=== PATIENT | female | born 1955 | race Caucasian/White ===

== ENCOUNTER → 2018-12-31 15:43 | Outpatient (CLI) | payer OTHER, SELFPAY ==
--- NOTE | 2018-12-31 | DI.MG.S_ITS ---
BILATERAL DIGITAL SCREENING MAMMOGRAM 3D/2D WITH CAD: 12/31/2018 CLINICAL: Routine screening. Comparison is made to exams dated: 07/22/2016 mammogram, 07/19/2015 mammogram, and 06/03/2014 mammogram - [facility]. The tissue of both breasts is heterogeneously dense. This may lower the sensitivity of mammography. Current study was also evaluated with a Computer Aided Detection (CAD) system. No significant masses, calcifications, or other findings are seen in either breast. There has been no significant interval change. IMPRESSION: NEGATIVE There is no mammographic evidence of malignancy. A 1 year screening mammogram is recommended. This exam was interpreted at Station ID: [id number]. NOTE: For mammograms, a report in lay terms will be sent to the patient. Approximately 15% of breast malignancies will not be visualized mammographically. In the management of a palpable breast mass, a negative mammogram must not discourage biopsy of a clinically suspicious lesion. Electronically Signed By: Johnson gillis/aleah:01/04/2019 10:49:51 letter sent: Normal Exam ACR BI-RADS Category 1: Negative [id number]
== END ==
PROVIDERS: PCP Student in an Organized Health Care Education/Training Program; Visit Provider Student in an Organized Health Care Education/Training Program
DX: Z12.31 Encounter for screening mammogram for malignant neoplasm of breast (principal)
CPT/HCPCS: 77063; 77067

== ENCOUNTER 2019-05-26 08:15 | Outpatient (RCR) | payer OTHER, SELFPAY ==
--- NOTE | 2019-03-29 15:38 | PT.OIE ---
Current Diagnoses Sciatica, unspecified side (03/29/19) Past Medical History (This Medical Record has been edited. Action required.) Chicken pox (Acute) Ovarian cyst (Acute ~2001) Past Surgical History (This Medical Record has been edited. Action required.) Anesthesia (Acute) History of dilatation and curettage (Acute ~1998) Visit Care Team Role Provider Type Kobe Elliott MD Attending Provider Physician Primary Care Provider Specialty: Internal Medicine Address: [address] [place] [address], [address], [address] Email: [email or web address] Physical Therapy Initial Evaluation PT-OP-A Visit Information Start: 03/29/19 07:21 Freq: Status: Active Protocol: Document 03/29/19 08:15 MB (Rec: 03/29/19 08:55 MB [id number]) Out-Patient Physical Therapy Visit Information Visit Information Visit Type Initial Evaluation Visit Note 25 visits Visit Start Time 08:15 Visit Stop Time 08:55 Total Visit Minutes 40 Visit Number 06/12 PT-OP-B Current Condition Start: 03/29/19 07:21 Freq: Status: Active Protocol: Document 03/29/19 08:15 MB (Rec: 03/29/19 08:55 MB [id number]) Current Condition History of Current Condition Onset Date 02/17/19 History of Current Condition Pt got off plane from [place] to [place] and she had left left pain in her buttock and leg. Pt reports that getting OOB and putting left leg on the floor makes her left leg hurt the worse. Pt reports intermittent pain and has trouble rating it. Driving time in the car, too much time sitting, and not walking increase her pain. She has had low pain to a couple of 8-9/ 10 mornings. She had a 10/10 morning and thought she was going to faint 3 weeks ago. That prompted her to see Dr. Elliott. Pt reports numbness left plantar fascia near met heads. She reports she feels like she has an extra sock in the area. It is pretty constant. She is sleeping on her back with a pillow under her knees and her pain is better. She has slippers next to the bed that she puts on in the morning. She has pain on her ischial tuberosity with sitting. Her assisted her with scooting in the bed, putting his hand under her left ischial tuberosity and this increased the pain. She feels like her gait is off and she is walking slowly. PT-OP-C Subjective Start: 03/29/19 07:21 Freq: Status: Active Protocol: Document 03/29/19 08:15 MB (Rec: 03/29/19 08:55 MB [id number]) OP-PT Subjective Patient Comments Patient Comments Pt's goals for PT are to decrease pain and numbness. She would like to be able to sit down at the piano to play. Patient Questionnaires Oswestry Low Back Index Oswestry Impairment 40 to 59% Impaired (Score 40- 59) PT-OP-J Posture/Palpation/Skin Start: 03/29/19 07:21 Freq: Status: Active Protocol: Document 03/29/19 08:15 MB (Rec: 03/29/19 15:11 MB [id number]) Posture Evaluation Comments Posture Comments Standing: Dowager's hump, decreased thoracic kyphosis, increased lumbar lordosis, right handed and right shoulder lower than the left, right iliac crest mildly higher than the left PT-OP-K Range of Motion Start: 03/29/19 07:21 Freq: Status: Active Protocol: Document 03/29/19 08:15 MB (Rec: 03/29/19 15:11 MB [id number]) Hip Goniometric Range of Motion Hip ROM Limitations Comments PT attempts SLR with pt supine and pt yelps in pain. Unable to SLR left greater than 30 deg. Pt reports buttocks and hamstring discomfort, not rated. Deferred left hip and knee MMT d/t her response and fear of pain PT-OP-M Strength Start: 03/29/19 07:21 Freq: Status: Active Protocol: Document 03/29/19 08:15 MB (Rec: 03/29/19 15:11 MB [id number]) Hip Strength Hip Manual Muscle Testing Left Comments Supine deferred d/t pt's response with SLR and fear of pain Right Flexion (L2) 4 Good Abduction 3 Fair Comments Supine Knee Strength Knee Manual Muscle Testing Left Comments Deferred d/t pt's response with SLR and fear of pain Right Flexion (S2) 5 Normal Extension (L3) 5 Normal Comments Supine Ankle/Foot Strength Ankle and Foot Manual Muscle Testing Left Dorsiflexion (L4) 5 Normal Plantarflexion (S1) 5 Normal Inversion 5 Normal Eversion (S1) 5 Normal Comments Great toe 4/5 Right Dorsiflexion (L4) 5 Normal Plantarflexion (S1) 5 Normal Inversion 5 Normal Eversion (S1) 5 Normal Comments Great toe 5/5 PT-OP-Q Treatments Start: 03/29/19 07:21 Freq: Status: Active Protocol: Document 03/29/19 08:15 MB (Rec: 03/29/19 09:00 MB [id number]) Therapeutic Exercises Supine Exercises Pelvic realigment exercises Comments Pelvic realignment exercises added to HEP PT-OP-T Assessment and Plan Start: 03/29/19 07:21 Freq: Status: Active Protocol: Document 03/29/19 08:15 MB (Rec: 03/29/19 15:11 MB [id number]) Physical Therapy Assessment Rehab Potential Rehabilitation Potential Good Evaluation Complexity Number of Personal Factors/Comorbidities 0 Number of Body Systems Impaired 1-2 Impairments Impairments Balance,Functional Activities, Functional Mobility,Pain, Posture,ROM,Sensation,Soft Tissue Mobility,Strength Goals 5 Group Home Goal (LTG) Pt will perform progressive HEP including postural, pelvic alignment, flexibility, strengthening and balance exercises with I by 05/31/19. LTG Duration 8 weeks 4 Impairment Weakness Group Home Goal (LTG) Pt will present with B hip flexion and abduction, knee flexion and extension to at least 5/5 with MMT by 05/31/19. LTG Duration 8 weeks 3 Impairment Decreased ROM Materials Branch Chief Goal (LTG) Pt will present with B SLR to at least 80 deg without LB or leg pain by 05/31/19. LTG Duration 8 weeks 2 Impairment Pain Group Home Goal (LTG) Pt will report an overall 75% improvement in pain by 05/31/19 . LTG Duration 8 weeks 1 Impairment Oswestry reflects 52% impairment Group Home Goal (LTG) Pt will present with an improved Oswestry LBP scale score to reflect no more than 30% impairment by 05/31/19. LTG Duration 8 weeks Assessment Summary Assessment Pt is a 63 y/o female presenting with left buttock and LE pain and paresthesias [place]. She reports pain at her left ischial tuberosity specifically and pain that occ travels down her left leg with the feeling of extra sock material at the met heads under her left foot. Sitting is troublesome and she would like to get back to playing the piano. Pt presents with decreased PROM left LE, decreased strength and postural changes including pelvic obliquities. Repeated standing flexion and extension , Slump Test and left hip and knee MMT deferred d/t pt with increased pain and fear with minimal SLR LLE to 30 deg. Her symptoms are radicular in nature. She will benefit from PT for pelvic alignment, flexibility, core and LE strengthening and manual PT. Physical Therapy Plan Frequency and Duration Frequency of Treatment 2x/Week Duration of Treatment 8 weeks Plan of Care Start Date 03/29/19 Plan of Care End Date 05/31/19 Therapeutic Interventions Therapeutic Interventions Balance Training,Home Exercise Program,Joint Mobilizations, Manual Therapy,Neuromuscular Re-education,Orthotic/ Prosthetic Management,Patient/ Caregiver Education,Self-Care/ Home Management,Soft Tissue Mobilization,Taping, Therapeutic Exercises Modalities Cold Pack/Ice Massage,Electric Stimulation,Hot Packs, Ultrasound Next Visit Focus/Plan Next Note Type Treatment Note Next Visit Plan Review pelvic realigment exercises and initiate further progressive exercises and Counterstrain
--- NOTE | 2019-03-31 13:45 | PT.OTN ---
Current Diagnoses Sciatica, unspecified side (03/31/19) Physical Therapy Treatment Note PT-OP-A Visit Information Start: 03/29/19 07:21 Freq: Status: Active Protocol: Document 03/31/19 13:05 MB (Rec: 03/31/19 13:45 MB [id number]) Out-Patient Physical Therapy Visit Information Visit Information Visit Type Treatment Note Visit Note 25 visits Visit Start Time 13:05 Visit Stop Time 13:45 Total Visit Minutes 40 Visit Number 07/13 PT-OP-B Current Condition Start: 03/29/19 07:21 Freq: Status: Active Protocol: Document 03/29/19 08:15 MB (Rec: 03/29/19 08:55 MB [id number]) Current Condition History of Current Condition Onset Date 02/17/19 History of Current Condition Pt got off plane from [place] to [place] and she had left left pain in her buttock and leg. Pt reports that getting OOB and putting left leg on the floor makes her left leg hurt the worse. Pt reports intermittent pain and has trouble rating it. Driving time in the car, too much time sitting, and not walking increase her pain. She has had low pain to a couple of 8-9/ 10 mornings. She had a 10/10 morning and thought she was going to faint 3 weeks ago. That prompted her to see Dr. Elliott. Pt reports numbness left plantar fascia near met heads. She reports she feels like she has an extra sock in the area. It is pretty constant. She is sleeping on her back with a pillow under her knees and her pain is better. She has slippers next to the bed that she puts on in the morning. She has pain on her ischial tuberosity with sitting. Her assisted her with scooting in the bed, putting his hand under her left ischial tuberosity and this increased the pain. She feels like her gait is off and she is walking slowly. PT-OP-C Subjective Start: 03/29/19 07:21 Freq: Status: Active Protocol: Document 03/31/19 13:05 MB (Rec: 03/31/19 13:45 MB [id number]) OP-PT Subjective Patient Comments Patient Comments Pt states that she had the worse morning that she has had . She did a lot of walking on Friday and then sat at her friend's house for dinner for a long time. She then drove to [facility] yesterday and had dinner and sat for [address] back and felt worse. She felt bad lying on her right side with pillow support between her knees. PT-OP-J Posture/Palpation/Skin Start: 03/29/19 07:21 Freq: Status: Active Protocol: Document 03/29/19 08:15 MB (Rec: 03/29/19 15:11 MB [id number]) Posture Evaluation Comments Posture Comments Standing: Dowager's hump, decreased thoracic kyphosis, increased lumbar lordosis, right handed and right shoulder lower than the left, right iliac crest mildly higher than the left PT-OP-K Range of Motion Start: 03/29/19 07:21 Freq: Status: Active Protocol: Document 03/29/19 08:15 MB (Rec: 03/29/19 15:11 MB [id number]) Hip Goniometric Range of Motion Hip ROM Limitations Comments PT attempts SLR with pt supine and pt yelps in pain. Unable to SLR left greater than 30 deg. Pt reports buttocks and hamstring discomfort, not rated. Deferred left hip and knee MMT d/t her response and fear of pain PT-OP-M Strength Start: 03/29/19 07:21 Freq: Status: Active Protocol: Document 03/29/19 08:15 MB (Rec: 03/29/19 15:11 MB [id number]) Hip Strength Hip Manual Muscle Testing Left Comments Supine deferred d/t pt's response with SLR and fear of pain Right Flexion (L2) 4 Good Abduction 3 Fair Comments Supine Knee Strength Knee Manual Muscle Testing Left Comments Deferred d/t pt's response with SLR and fear of pain Right Flexion (S2) 5 Normal Extension (L3) 5 Normal Comments Supine Ankle/Foot Strength Ankle and Foot Manual Muscle Testing Left Dorsiflexion (L4) 5 Normal Plantarflexion (S1) 5 Normal Inversion 5 Normal Eversion (S1) 5 Normal Comments Great toe 4/5 Right Dorsiflexion (L4) 5 Normal Plantarflexion (S1) 5 Normal Inversion 5 Normal Eversion (S1) 5 Normal Comments Great toe 5/5 PT-OP-Q Treatments Start: 03/29/19 07:21 Freq: Status: Active Protocol: Document 03/31/19 13:05 MB (Rec: 03/31/19 13:45 MB [id number]) Therapeutic Exercises Supine Exercises Diaphragmatic breathing Reps/Minutes Pt has difficulty with this Pelvic realigment exercises Comments Performed today Self-Care/Home Management Treatment Education Other Education Benefits of sitting with hips higher than knees, getting up every 20 minutes when sitting, benefits of 55 cm therapy ball, Counterstrain handout and ed, glute sets when sitting PT-OP-T Assessment and Plan Start: 03/29/19 07:21 Freq: Status: Active Protocol: Document 03/31/19 13:05 MB (Rec: 03/31/19 13:45 MB [id number]) Physical Therapy Assessment Rehab Potential Rehabilitation Potential Good Evaluation Complexity Number of Personal Factors/Comorbidities 0 Number of Body Systems Impaired 1-2 Impairments Impairments Balance,Functional Activities, Functional Mobility,Pain, Posture,ROM,Sensation,Soft Tissue Mobility,Strength Goals 5 Intermediate Goal (LTG) Pt will perform progressive HEP including postural, pelvic alignment, flexibility, strengthening and balance exercises with I by 05/31/19. LTG Duration 8 weeks 4 Impairment Weakness Layout Worker Goal (LTG) Pt will present with B hip flexion and abduction, knee flexion and extension to at least 5/5 with MMT by 05/31/19. LTG Duration 8 weeks 3 Impairment Decreased ROM Intermediate Goal (LTG) Pt will present with B SLR to at least 80 deg without LB or leg pain by 05/31/19. LTG Duration 8 weeks 2 Impairment Pain Layout Worker Goal (LTG) Pt will report an overall 75% improvement in pain by 05/31/19 . LTG Duration 8 weeks 1 Impairment Oswestry reflects 52% impairment Layout Worker Goal (LTG) Pt will present with an improved Oswestry LBP scale score to reflect no more than 30% impairment by 05/31/19. LTG Duration 8 weeks Assessment Summary Assessment Pt con't with left sciatic- type pain and ischial pain. Reviewed pelvic realignment exercises, proper sitting position. Plan to initiate Counterstrain soon. Physical Therapy Plan Frequency and Duration Frequency of Treatment 2x/Week Duration of Treatment 8 weeks Plan of Care Start Date 03/29/19 Plan of Care End Date 05/31/19 Therapeutic Interventions Therapeutic Interventions Balance Training,Home Exercise Program,Joint Mobilizations, Manual Therapy,Neuromuscular Re-education,Orthotic/ Prosthetic Management,Patient/ Caregiver Education,Self-Care/ Home Management,Soft Tissue Mobilization,Taping, Therapeutic Exercises Modalities Cold Pack/Ice Massage,Electric Stimulation,Hot Packs, Ultrasound Next Visit Focus/Plan Next Note Type Treatment Note Next Visit Plan Review pelvic realigment exercises and initiate further progressive exercises and Counterstrain
--- NOTE | 2019-04-05 09:01 | PT.OTN ---
Current Diagnoses Sciatica, unspecified side (04/05/19) Physical Therapy Treatment Note PT-OP-A Visit Information Start: 03/29/19 07:21 Freq: Status: Active Protocol: Document 04/05/19 08:20 MB (Rec: 04/05/19 09:00 MB [id number]) Out-Patient Physical Therapy Visit Information Visit Information Visit Type Treatment Note Visit Note 25 visits Visit Start Time 08:20 Visit Stop Time 09:00 Total Visit Minutes 40 Visit Number 08/10 PT-OP-B Current Condition Start: 03/29/19 07:21 Freq: Status: Active Protocol: Document 03/29/19 08:15 MB (Rec: 03/29/19 08:55 MB [id number]) Current Condition History of Current Condition Onset Date 02/17/19 History of Current Condition Pt got off plane from [place] to [place] and she had left left pain in her buttock and leg. Pt reports that getting OOB and putting left leg on the floor makes her left leg hurt the worse. Pt reports intermittent pain and has trouble rating it. Driving time in the car, too much time sitting, and not walking increase her pain. She has had low pain to a couple of 8-9/ 10 mornings. She had a 10/10 morning and thought she was going to faint 3 weeks ago. That prompted her to see Dr. Elliott. Pt reports numbness left plantar fascia near met heads. She reports she feels like she has an extra sock in the area. It is pretty constant. She is sleeping on her back with a pillow under her knees and her pain is better. She has slippers next to the bed that she puts on in the morning. She has pain on her ischial tuberosity with sitting. Her assisted her with scooting in the bed, putting his hand under her left ischial tuberosity and this increased the pain. She feels like her gait is off and she is walking slowly. PT-OP-C Subjective Start: 03/29/19 07:21 Freq: Status: Active Protocol: Document 04/05/19 08:20 MB (Rec: 04/05/19 09:00 MB [id number]) OP-PT Subjective Patient Comments Patient Comments Pt states that yesterday, she had a pretty good day. She did the ellipital for 1 hour for two days. She was feeling better and then tried to lead ascending steps with left foot and that started an episode. It lasted 20 minutes. She did not have to spend time sitting anywhere. She has not been sitting to eat. She has been forgetting to squeeze her glutes when sitting. She was able to sit for 15 minutes at a time to watch TV and she was okay. She could carry laundry down the steps. PT-OP-J Posture/Palpation/Skin Start: 03/29/19 07:21 Freq: Status: Active Protocol: Document 03/29/19 08:15 MB (Rec: 03/29/19 15:11 MB [id number]) Posture Evaluation Comments Posture Comments Standing: Dowager's hump, decreased thoracic kyphosis, increased lumbar lordosis, right handed and right shoulder lower than the left, right iliac crest mildly higher than the left PT-OP-K Range of Motion Start: 03/29/19 07:21 Freq: Status: Active Protocol: Document 03/29/19 08:15 MB (Rec: 03/29/19 15:11 MB [id number]) Hip Goniometric Range of Motion Hip ROM Limitations Comments PT attempts SLR with pt supine and pt yelps in pain. Unable to SLR left greater than 30 deg. Pt reports buttocks and hamstring discomfort, not rated. Deferred left hip and knee MMT d/t her response and fear of pain PT-OP-M Strength Start: 03/29/19 07:21 Freq: Status: Active Protocol: Document 03/29/19 08:15 MB (Rec: 03/29/19 15:11 MB [id number]) Hip Strength Hip Manual Muscle Testing Left Comments Supine deferred d/t pt's response with SLR and fear of pain Right Flexion (L2) 4 Good Abduction 3 Fair Comments Supine Knee Strength Knee Manual Muscle Testing Left Comments Deferred d/t pt's response with SLR and fear of pain Right Flexion (S2) 5 Normal Extension (L3) 5 Normal Comments Supine Ankle/Foot Strength Ankle and Foot Manual Muscle Testing Left Dorsiflexion (L4) 5 Normal Plantarflexion (S1) 5 Normal Inversion 5 Normal Eversion (S1) 5 Normal Comments Great toe 4/5 Right Dorsiflexion (L4) 5 Normal Plantarflexion (S1) 5 Normal Inversion 5 Normal Eversion (S1) 5 Normal Comments Great toe 5/5 PT-OP-Q Treatments Start: 03/29/19 07:21 Freq: Status: Active Protocol: Document 04/05/19 08:20 MB (Rec: 04/05/19 09:00 MB [id number]) Therapeutic Exercises Supine Exercises Daniel stretch Comments Performed this date and not yet added to HEP Diaphragmatic breathing Comments Performed again this date in hook lying, pt has difficulty Pelvic realigment exercises Comments Reviewed again this date Prone Exercises Prone lying Comments Pt wishes to get out of position, buttock pain Manual Therapy Treatment Other Other Manual Treatments Positional release left hip rotators and hip flexor PT-OP-T Assessment and Plan Start: 03/29/19 07:21 Freq: Status: Active Protocol: Document 04/05/19 08:20 MB (Rec: 04/05/19 09:00 MB [id number]) Physical Therapy Assessment Rehab Potential Rehabilitation Potential Good Evaluation Complexity Number of Personal Factors/Comorbidities 0 Number of Body Systems Impaired 1-2 Impairments Impairments Balance,Functional Activities, Functional Mobility,Pain, Posture,ROM,Sensation,Soft Tissue Mobility,Strength Goals 5 Correction Goal (LTG) Pt will perform progressive HEP including postural, pelvic alignment, flexibility, strengthening and balance exercises with I by 05/31/19. LTG Duration 8 weeks 4 Impairment Weakness Correction Goal (LTG) Pt will present with B hip flexion and abduction, knee flexion and extension to at least 5/5 with MMT by 05/31/19. LTG Duration 8 weeks 3 Impairment Decreased ROM Security Dispatcher Goal (LTG) Pt will present with B SLR to at least 80 deg without LB or leg pain by 05/31/19. LTG Duration 8 weeks 2 Impairment Pain Security Dispatcher Goal (LTG) Pt will report an overall 75% improvement in pain by 05/31/19 . LTG Duration 8 weeks 1 Impairment Oswestry reflects 52% impairment Correction Goal (LTG) Pt will present with an improved Oswestry LBP scale score to reflect no more than 30% impairment by 05/31/19. LTG Duration 8 weeks Assessment Summary Assessment Pt could not tolerate prone lying this date. Con't to try and also initiate Counterstrain soon. Palpation assessment today: pt presents with increased tension left sacrotuberous ligament area, left hip rotators, hip flexor Physical Therapy Plan Frequency and Duration Frequency of Treatment 2x/Week Duration of Treatment 8 weeks Plan of Care Start Date 03/29/19 Plan of Care End Date 05/31/19 Therapeutic Interventions Therapeutic Interventions Balance Training,Home Exercise Program,Joint Mobilizations, Manual Therapy,Neuromuscular Re-education,Orthotic/ Prosthetic Management,Patient/ Caregiver Education,Self-Care/ Home Management,Soft Tissue Mobilization,Taping, Therapeutic Exercises Modalities Cold Pack/Ice Massage,Electric Stimulation,Hot Packs, Ultrasound Next Visit Focus/Plan Next Note Type Treatment Note Next Visit Plan Initiate Counterstrain soon
--- NOTE | 2019-04-09 09:48 | PT.OTN ---
Current Diagnoses Sciatica, unspecified side (04/09/19) Physical Therapy Treatment Note PT-OP-A Visit Information Start: 03/29/19 07:21 Freq: Status: Active Protocol: Document 04/09/19 09:03 MB (Rec: 04/09/19 09:48 MB [id number]) Out-Patient Physical Therapy Visit Information Visit Information Visit Type Treatment Note Visit Note 25 visits Visit Start Time 09:03 Visit Stop Time 09:43 Total Visit Minutes 40 Visit Number 09/10 PT-OP-B Current Condition Start: 03/29/19 07:21 Freq: Status: Active Protocol: Document 03/29/19 08:15 MB (Rec: 03/29/19 08:55 MB [id number]) Current Condition History of Current Condition Onset Date 02/17/19 History of Current Condition Pt got off plane from [place] to [place] and she had left left pain in her buttock and leg. Pt reports that getting OOB and putting left leg on the floor makes her left leg hurt the worse. Pt reports intermittent pain and has trouble rating it. Driving time in the car, too much time sitting, and not walking increase her pain. She has had low pain to a couple of 8-9/ 10 mornings. She had a 10/10 morning and thought she was going to faint 3 weeks ago. That prompted her to see Dr. Elliott. Pt reports numbness left plantar fascia near met heads. She reports she feels like she has an extra sock in the area. It is pretty constant. She is sleeping on her back with a pillow under her knees and her pain is better. She has slippers next to the bed that she puts on in the morning. She has pain on her ischial tuberosity with sitting. Her assisted her with scooting in the bed, putting his hand under her left ischial tuberosity and this increased the pain. She feels like her gait is off and she is walking slowly. PT-OP-C Subjective Start: 03/29/19 07:21 Freq: Status: Active Protocol: Document 04/09/19 09:03 MB (Rec: 04/09/19 09:48 MB [id number]) OP-PT Subjective Patient Comments Patient Comments Pt states that she went to reach for a cereal box way overhead with her right hand and felt the pain go down to her left buttock and leg. It triggered and episode. PT-OP-J Posture/Palpation/Skin Start: 03/29/19 07:21 Freq: Status: Active Protocol: Document 03/29/19 08:15 MB (Rec: 03/29/19 15:11 MB [id number]) Posture Evaluation Comments Posture Comments Standing: Dowager's hump, decreased thoracic kyphosis, increased lumbar lordosis, right handed and right shoulder lower than the left, right iliac crest mildly higher than the left PT-OP-K Range of Motion Start: 03/29/19 07:21 Freq: Status: Active Protocol: Document 03/29/19 08:15 MB (Rec: 03/29/19 15:11 MB [id number]) Hip Goniometric Range of Motion Hip ROM Limitations Comments PT attempts SLR with pt supine and pt yelps in pain. Unable to SLR left greater than 30 deg. Pt reports buttocks and hamstring discomfort, not rated. Deferred left hip and knee MMT d/t her response and fear of pain PT-OP-M Strength Start: 03/29/19 07:21 Freq: Status: Active Protocol: Document 03/29/19 08:15 MB (Rec: 03/29/19 15:11 MB [id number]) Hip Strength Hip Manual Muscle Testing Left Comments Supine deferred d/t pt's response with SLR and fear of pain Right Flexion (L2) 4 Good Abduction 3 Fair Comments Supine Knee Strength Knee Manual Muscle Testing Left Comments Deferred d/t pt's response with SLR and fear of pain Right Flexion (S2) 5 Normal Extension (L3) 5 Normal Comments Supine Ankle/Foot Strength Ankle and Foot Manual Muscle Testing Left Dorsiflexion (L4) 5 Normal Plantarflexion (S1) 5 Normal Inversion 5 Normal Eversion (S1) 5 Normal Comments Great toe 4/5 Right Dorsiflexion (L4) 5 Normal Plantarflexion (S1) 5 Normal Inversion 5 Normal Eversion (S1) 5 Normal Comments Great toe 5/5 PT-OP-Q Treatments Start: 03/29/19 07:21 Freq: Status: Active Protocol: Document 04/09/19 09:03 MB (Rec: 04/09/19 09:48 MB [id number]) Manual Therapy Treatment Other Other Manual Treatments Pt agrees to Counterstrain to assess and treat fascial tension of the following systems: left somatic, right cranial nerve, left sinuvertebal, right post- ganglionics UE, right thoracic visceral, right ALL, right spinal veins extended. Treated stacks: right spinal veins extended, right pleural viscera, LLE somatics anterior and stacks with the right. PT-OP-T Assessment and Plan Start: 03/29/19 07:21 Freq: Status: Active Protocol: Document 04/09/19 09:03 MB (Rec: 04/09/19 09:48 MB [id number]) Physical Therapy Assessment Rehab Potential Rehabilitation Potential Good Evaluation Complexity Number of Personal Factors/Comorbidities 0 Number of Body Systems Impaired 1-2 Impairments Impairments Balance,Functional Activities, Functional Mobility,Pain, Posture,ROM,Sensation,Soft Tissue Mobility,Strength Goals 5 Retirement Goal (LTG) Pt will perform progressive HEP including postural, pelvic alignment, flexibility, strengthening and balance exercises with I by 05/31/19. LTG Duration 8 weeks 4 Impairment Weakness Pattern Fitter Goal (LTG) Pt will present with B hip flexion and abduction, knee flexion and extension to at least 5/5 with MMT by 05/31/19. LTG Duration 8 weeks 3 Impairment Decreased ROM Retirement Goal (LTG) Pt will present with B SLR to at least 80 deg without LB or leg pain by 05/31/19. LTG Duration 8 weeks 2 Impairment Pain Retirement Goal (LTG) Pt will report an overall 75% improvement in pain by 05/31/19 . LTG Duration 8 weeks 1 Impairment Oswestry reflects 52% impairment Pattern Fitter Goal (LTG) Pt will present with an improved Oswestry LBP scale score to reflect no more than 30% impairment by 05/31/19. LTG Duration 8 weeks Assessment Summary Assessment Con't Counterstrain and progress flexibility adn core and LE strengthening. Physical Therapy Plan Frequency and Duration Frequency of Treatment 2x/Week Duration of Treatment 8 weeks Plan of Care Start Date 03/29/19 Plan of Care End Date 05/31/19 Therapeutic Interventions Therapeutic Interventions Balance Training,Home Exercise Program,Joint Mobilizations, Manual Therapy,Neuromuscular Re-education,Orthotic/ Prosthetic Management,Patient/ Caregiver Education,Self-Care/ Home Management,Soft Tissue Mobilization,Taping, Therapeutic Exercises Modalities Cold Pack/Ice Massage,Electric Stimulation,Hot Packs, Ultrasound Next Visit Focus/Plan Next Note Type Treatment Note Next Visit Plan Initiate Counterstrain soon
--- NOTE | 2019-04-12 08:59 | PT.OTN ---
Current Diagnoses Sciatica, unspecified side (04/12/19) Physical Therapy Treatment Note PT-OP-A Visit Information Start: 03/29/19 07:21 Freq: Status: Active Protocol: Document 04/12/19 08:15 MB (Rec: 04/12/19 08:59 MB [id number]) Out-Patient Physical Therapy Visit Information Visit Information Visit Type Treatment Note Visit Note 25 visits Visit Start Time 08:15 Visit Stop Time 08:55 Total Visit Minutes 40 Visit Number 10/10 PT-OP-B Current Condition Start: 03/29/19 07:21 Freq: Status: Active Protocol: Document 03/29/19 08:15 MB (Rec: 03/29/19 08:55 MB [id number]) Current Condition History of Current Condition Onset Date 02/17/19 History of Current Condition Pt got off plane from [place] to [place] and she had left left pain in her buttock and leg. Pt reports that getting OOB and putting left leg on the floor makes her left leg hurt the worse. Pt reports intermittent pain and has trouble rating it. Driving time in the car, too much time sitting, and not walking increase her pain. She has had low pain to a couple of 8-9/ 10 mornings. She had a 10/10 morning and thought she was going to faint 3 weeks ago. That prompted her to see Dr. Elliott. Pt reports numbness left plantar fascia near met heads. She reports she feels like she has an extra sock in the area. It is pretty constant. She is sleeping on her back with a pillow under her knees and her pain is better. She has slippers next to the bed that she puts on in the morning. She has pain on her ischial tuberosity with sitting. Her assisted her with scooting in the bed, putting his hand under her left ischial tuberosity and this increased the pain. She feels like her gait is off and she is walking slowly. PT-OP-C Subjective Start: 03/29/19 07:21 Freq: Status: Active Protocol: Document 04/12/19 08:15 MB (Rec: 04/12/19 08:59 MB [id number]) OP-PT Subjective Patient Comments Patient Comments Pt states that yesterday was a good day. She woke up without a lot of pain. She sat on the therapy ball at her desk and this was good. She rocks back and forth on it and this bothered her. She was able to play the piano 40 minutes with taking breaks. She moved her cereal boxes. She was sitting with the cat on her lap and took a break. PT-OP-J Posture/Palpation/Skin Start: 03/29/19 07:21 Freq: Status: Active Protocol: Document 03/29/19 08:15 MB (Rec: 03/29/19 15:11 MB [id number]) Posture Evaluation Comments Posture Comments Standing: Dowager's hump, decreased thoracic kyphosis, increased lumbar lordosis, right handed and right shoulder lower than the left, right iliac crest mildly higher than the left PT-OP-K Range of Motion Start: 03/29/19 07:21 Freq: Status: Active Protocol: Document 03/29/19 08:15 MB (Rec: 03/29/19 15:11 MB [id number]) Hip Goniometric Range of Motion Hip ROM Limitations Comments PT attempts SLR with pt supine and pt yelps in pain. Unable to SLR left greater than 30 deg. Pt reports buttocks and hamstring discomfort, not rated. Deferred left hip and knee MMT d/t her response and fear of pain PT-OP-M Strength Start: 03/29/19 07:21 Freq: Status: Active Protocol: Document 03/29/19 08:15 MB (Rec: 03/29/19 15:11 MB [id number]) Hip Strength Hip Manual Muscle Testing Left Comments Supine deferred d/t pt's response with SLR and fear of pain Right Flexion (L2) 4 Good Abduction 3 Fair Comments Supine Knee Strength Knee Manual Muscle Testing Left Comments Deferred d/t pt's response with SLR and fear of pain Right Flexion (S2) 5 Normal Extension (L3) 5 Normal Comments Supine Ankle/Foot Strength Ankle and Foot Manual Muscle Testing Left Dorsiflexion (L4) 5 Normal Plantarflexion (S1) 5 Normal Inversion 5 Normal Eversion (S1) 5 Normal Comments Great toe 4/5 Right Dorsiflexion (L4) 5 Normal Plantarflexion (S1) 5 Normal Inversion 5 Normal Eversion (S1) 5 Normal Comments Great toe 5/5 PT-OP-Q Treatments Start: 03/29/19 07:21 Freq: Status: Active Protocol: Document 04/12/19 08:15 MB (Rec: 04/12/19 08:59 MB [id number]) Manual Therapy Treatment Other Other Manual Treatments Pt agrees to Counterstrain to assess and treat fascial tension of the following systems: PT treats stacks: left DPR, left dural, right posterior LE somatics PT-OP-T Assessment and Plan Start: 03/29/19 07:21 Freq: Status: Active Protocol: Document 04/12/19 08:15 MB (Rec: 04/12/19 08:59 MB [id number]) Physical Therapy Assessment Rehab Potential Rehabilitation Potential Good Evaluation Complexity Number of Personal Factors/Comorbidities 0 Number of Body Systems Impaired 1-2 Impairments Impairments Balance,Functional Activities, Functional Mobility,Pain, Posture,ROM,Sensation,Soft Tissue Mobility,Strength Goals 5 Retirement Goal (LTG) Pt will perform progressive HEP including postural, pelvic alignment, flexibility, strengthening and balance exercises with I by 05/31/19. LTG Duration 8 weeks 4 Impairment Weakness Retirement Goal (LTG) Pt will present with B hip flexion and abduction, knee flexion and extension to at least 5/5 with MMT by 05/31/19. LTG Duration 8 weeks 3 Impairment Decreased ROM Retirement Goal (LTG) Pt will present with B SLR to at least 80 deg without LB or leg pain by 05/31/19. LTG Duration 8 weeks 2 Impairment Pain Putty Tinter Maker Goal (LTG) Pt will report an overall 75% improvement in pain by 05/31/19 . LTG Duration 8 weeks 1 Impairment Oswestry reflects 52% impairment Putty Tinter Maker Goal (LTG) Pt will present with an improved Oswestry LBP scale score to reflect no more than 30% impairment by 05/31/19. LTG Duration 8 weeks Assessment Summary Assessment Pt is feeling better. Con't Counterstrain and progress flexibility and core and LE strengthening. Pt has a therapy ball and consider advancing using ball. Physical Therapy Plan Frequency and Duration Frequency of Treatment 2x/Week Duration of Treatment 8 weeks Plan of Care Start Date 03/29/19 Plan of Care End Date 05/31/19 Therapeutic Interventions Therapeutic Interventions Balance Training,Home Exercise Program,Joint Mobilizations, Manual Therapy,Neuromuscular Re-education,Orthotic/ Prosthetic Management,Patient/ Caregiver Education,Self-Care/ Home Management,Soft Tissue Mobilization,Taping, Therapeutic Exercises Modalities Cold Pack/Ice Massage,Electric Stimulation,Hot Packs, Ultrasound Next Visit Focus/Plan Next Note Type Treatment Note Next Visit Plan Initiate Counterstrain soon
--- NOTE | 2019-04-14 13:52 | PT.OTN ---
Current Diagnoses Sciatica, unspecified side (04/14/19) Physical Therapy Treatment Note PT-OP-A Visit Information Start: 03/29/19 07:21 Freq: Status: Active Protocol: Document 04/14/19 13:00 MB (Rec: 04/14/19 13:52 MB [id number]) Out-Patient Physical Therapy Visit Information Visit Information Visit Type Treatment Note Visit Note 25 visits Visit Start Time 13:00 Visit Stop Time 13:40 Total Visit Minutes 40 Visit Number 11/10 PT-OP-B Current Condition Start: 03/29/19 07:21 Freq: Status: Active Protocol: Document 03/29/19 08:15 MB (Rec: 03/29/19 08:55 MB [id number]) Current Condition History of Current Condition Onset Date 02/17/19 History of Current Condition Pt got off plane from [place] to [place] and she had left left pain in her buttock and leg. Pt reports that getting OOB and putting left leg on the floor makes her left leg hurt the worse. Pt reports intermittent pain and has trouble rating it. Driving time in the car, too much time sitting, and not walking increase her pain. She has had low pain to a couple of 8-9/ 10 mornings. She had a 10/10 morning and thought she was going to faint 3 weeks ago. That prompted her to see Dr. Elliott. Pt reports numbness left plantar fascia near met heads. She reports she feels like she has an extra sock in the area. It is pretty constant. She is sleeping on her back with a pillow under her knees and her pain is better. She has slippers next to the bed that she puts on in the morning. She has pain on her ischial tuberosity with sitting. Her assisted her with scooting in the bed, putting his hand under her left ischial tuberosity and this increased the pain. She feels like her gait is off and she is walking slowly. PT-OP-C Subjective Start: 03/29/19 07:21 Freq: Status: Active Protocol: Document 04/14/19 13:00 MB (Rec: 04/14/19 13:52 MB [id number]) OP-PT Subjective Patient Comments Patient Comments Pt states that she needs help with the therapy ball because when she sits on it, she starts to rock without realizing it. She has increased pain in the a.m. if she does a lot of sitting in the evening. PT-OP-J Posture/Palpation/Skin Start: 03/29/19 07:21 Freq: Status: Active Protocol: Document 03/29/19 08:15 MB (Rec: 03/29/19 15:11 MB [id number]) Posture Evaluation Comments Posture Comments Standing: Dowager's hump, decreased thoracic kyphosis, increased lumbar lordosis, right handed and right shoulder lower than the left, right iliac crest mildly higher than the left PT-OP-K Range of Motion Start: 03/29/19 07:21 Freq: Status: Active Protocol: Document 03/29/19 08:15 MB (Rec: 03/29/19 15:11 MB [id number]) Hip Goniometric Range of Motion Hip ROM Limitations Comments PT attempts SLR with pt supine and pt yelps in pain. Unable to SLR left greater than 30 deg. Pt reports buttocks and hamstring discomfort, not rated. Deferred left hip and knee MMT d/t her response and fear of pain PT-OP-M Strength Start: 03/29/19 07:21 Freq: Status: Active Protocol: Document 03/29/19 08:15 MB (Rec: 03/29/19 15:11 MB [id number]) Hip Strength Hip Manual Muscle Testing Left Comments Supine deferred d/t pt's response with SLR and fear of pain Right Flexion (L2) 4 Good Abduction 3 Fair Comments Supine Knee Strength Knee Manual Muscle Testing Left Comments Deferred d/t pt's response with SLR and fear of pain Right Flexion (S2) 5 Normal Extension (L3) 5 Normal Comments Supine Ankle/Foot Strength Ankle and Foot Manual Muscle Testing Left Dorsiflexion (L4) 5 Normal Plantarflexion (S1) 5 Normal Inversion 5 Normal Eversion (S1) 5 Normal Comments Great toe 4/5 Right Dorsiflexion (L4) 5 Normal Plantarflexion (S1) 5 Normal Inversion 5 Normal Eversion (S1) 5 Normal Comments Great toe 5/5 PT-OP-Q Treatments Start: 03/29/19 07:21 Freq: Status: Active Protocol: Document 04/14/19 13:00 MB (Rec: 04/14/19 13:52 MB [id number]) Therapeutic Exercises Supine Exercises Hip flexor release position Comments Legs over ball or ottoman Prone Exercises Child's Pose Comments Moving out of prone position Prone lying Comments Pt is able to tolerate this date, 20 sec Sidelying Exercises Racquet ball massage TFL Comments Performed and added to HEP Sitting Exercises Therapy ball abdominal drawing in and pelvic rocking Comments Pt to perform gently at home PT-OP-T Assessment and Plan Start: 03/29/19 07:21 Freq: Status: Active Protocol: Document 04/14/19 13:00 MB (Rec: 04/14/19 13:52 MB [id number]) Physical Therapy Assessment Rehab Potential Rehabilitation Potential Good Evaluation Complexity Number of Personal Factors/Comorbidities 0 Number of Body Systems Impaired 1-2 Impairments Impairments Balance,Functional Activities, Functional Mobility,Pain, Posture,ROM,Sensation,Soft Tissue Mobility,Strength Goals 5 Correction Goal (LTG) Pt will perform progressive HEP including postural, pelvic alignment, flexibility, strengthening and balance exercises with I by 05/31/19. LTG Duration 8 weeks 4 Impairment Weakness Correction Goal (LTG) Pt will present with B hip flexion and abduction, knee flexion and extension to at least 5/5 with MMT by 05/31/19. LTG Duration 8 weeks 3 Impairment Decreased ROM Tool And Gauge Inspector Goal (LTG) Pt will present with B SLR to at least 80 deg without LB or leg pain by 05/31/19. LTG Duration 8 weeks 2 Impairment Pain Correction Goal (LTG) Pt will report an overall 75% improvement in pain by 05/31/19 . LTG Duration 8 weeks 1 Impairment Oswestry reflects 52% impairment Correction Goal (LTG) Pt will present with an improved Oswestry LBP scale score to reflect no more than 30% impairment by 05/31/19. LTG Duration 8 weeks Assessment Summary Assessment Consider easing into further flexibility for hip and posterior leg, hip flexor. Gentle progressive core work-- might consider standing multifidi and hip abduction and extension training. Pt requires a lot of cues not to overdo activities. Consider pelvic asphalt tile floor layer possibly in the future. Physical Therapy Plan Frequency and Duration Frequency of Treatment 2x/Week Duration of Treatment 8 weeks Plan of Care Start Date 03/29/19 Plan of Care End Date 05/31/19 Therapeutic Interventions Therapeutic Interventions Balance Training,Home Exercise Program,Joint Mobilizations, Manual Therapy,Neuromuscular Re-education,Orthotic/ Prosthetic Management,Patient/ Caregiver Education,Self-Care/ Home Management,Soft Tissue Mobilization,Taping, Therapeutic Exercises Modalities Cold Pack/Ice Massage,Electric Stimulation,Hot Packs, Ultrasound Next Visit Focus/Plan Next Note Type Treatment Note Next Visit Plan See assessment comments today
--- NOTE | 2019-04-19 09:45 | PT.OTN ---
Current Diagnoses Sciatica, unspecified side (04/19/19) Physical Therapy Treatment Note PT-OP-A Visit Information Start: 03/29/19 07:21 Freq: Status: Active Protocol: Document 04/19/19 09:05 SP (Rec: 04/19/19 11:04 SP [id number]) Out-Patient Physical Therapy Visit Information Visit Information Visit Type Treatment Note Visit Note 25 visits Visit Start Time 09:05 Visit Stop Time 09:45 Total Visit Minutes 40 Visit Number 12/10 Number of GROUND CREWMAN AIRCRAFT SUPPORT Visits 1 PT-OP-B Current Condition Start: 03/29/19 07:21 Freq: Status: Active Protocol: Document 03/29/19 08:15 MB (Rec: 03/29/19 08:55 MB [id number]) Current Condition History of Current Condition Onset Date 02/17/19 History of Current Condition Pt got off plane from [place] to [place] and she had left left pain in her buttock and leg. Pt reports that getting OOB and putting left leg on the floor makes her left leg hurt the worse. Pt reports intermittent pain and has trouble rating it. Driving time in the car, too much time sitting, and not walking increase her pain. She has had low pain to a couple of 8-9/ 10 mornings. She had a 10/10 morning and thought she was going to faint 3 weeks ago. That prompted her to see Dr. Elliott. Pt reports numbness left plantar fascia near met heads. She reports she feels like she has an extra sock in the area. It is pretty constant. She is sleeping on her back with a pillow under her knees and her pain is better. She has slippers next to the bed that she puts on in the morning. She has pain on her ischial tuberosity with sitting. Her assisted her with scooting in the bed, putting his hand under her left ischial tuberosity and this increased the pain. She feels like her gait is off and she is walking slowly. PT-OP-C Subjective Start: 03/29/19 07:21 Freq: Status: Active Protocol: Document 04/19/19 09:05 SP (Rec: 04/19/19 11:04 SP [id number]) OP-PT Subjective Patient Comments Patient Comments Pt stated think slept wrong and back hurting this am pre PT, 4/10 pain L LS that extends into L glut posteriorly post thigh and at times into calf. Compliant with HEP exercises but didn't do the seated ball pelvic exercise due to not sure how, wants to review. PT-OP-J Posture/Palpation/Skin Start: 03/29/19 07:21 Freq: Status: Active Protocol: Document 03/29/19 08:15 MB (Rec: 03/29/19 15:11 MB [id number]) Posture Evaluation Comments Posture Comments Standing: Dowager's hump, decreased thoracic kyphosis, increased lumbar lordosis, right handed and right shoulder lower than the left, right iliac crest mildly higher than the left PT-OP-K Range of Motion Start: 03/29/19 07:21 Freq: Status: Active Protocol: Document 03/29/19 08:15 MB (Rec: 03/29/19 15:11 MB [id number]) Hip Goniometric Range of Motion Hip ROM Limitations Comments PT attempts SLR with pt supine and pt yelps in pain. Unable to SLR left greater than 30 deg. Pt reports buttocks and hamstring discomfort, not rated. Deferred left hip and knee MMT d/t her response and fear of pain PT-OP-M Strength Start: 03/29/19 07:21 Freq: Status: Active Protocol: Document 03/29/19 08:15 MB (Rec: 03/29/19 15:11 MB [id number]) Hip Strength Hip Manual Muscle Testing Left Comments Supine deferred d/t pt's response with SLR and fear of pain Right Flexion (L2) 4 Good Abduction 3 Fair Comments Supine Knee Strength Knee Manual Muscle Testing Left Comments Deferred d/t pt's response with SLR and fear of pain Right Flexion (S2) 5 Normal Extension (L3) 5 Normal Comments Supine Ankle/Foot Strength Ankle and Foot Manual Muscle Testing Left Dorsiflexion (L4) 5 Normal Plantarflexion (S1) 5 Normal Inversion 5 Normal Eversion (S1) 5 Normal Comments Great toe 4/5 Right Dorsiflexion (L4) 5 Normal Plantarflexion (S1) 5 Normal Inversion 5 Normal Eversion (S1) 5 Normal Comments Great toe 5/5 PT-OP-Q Treatments Start: 03/29/19 07:21 Freq: Status: Active Protocol: Document 04/19/19 09:05 SP (Rec: 04/19/19 11:04 SP [id number]) Therapeutic Exercises Supine Exercises Leg lengthening Reps/Minutes 5-10 sec hold x5 Comments cued PPT, level pelvis slow lengthening heel press away Diaphragmatic breathing Reps/Minutes x5 Comments Performed again this date in hook lying Pelvic realigment exercises Reps/Minutes 3 hold x5 each Comments Reviewed again this date Sitting Exercises PF stretch Reps/Minutes 30 x3 Comments neutral pelvis on firm surface Therapy ball abdominal drawing in and pelvic rocking Sitting Exercise Name ab drawing in, pelvic rocking Equipment Used 55cm anguillan ball Reps/Minutes x10 PT-OP-T Assessment and Plan Start: 03/29/19 07:21 Freq: Status: Active Protocol: Document 04/19/19 09:05 SP (Rec: 04/19/19 11:04 SP [id number]) Physical Therapy Assessment Goals 5 Senior Cobol Developer Goal (LTG) Pt will perform progressive HEP including postural, pelvic alignment, flexibility, strengthening and balance exercises with I by 05/31/19. LTG Duration 8 weeks 4 Impairment Weakness Fdc Goal (LTG) Pt will present with B hip flexion and abduction, knee flexion and extension to at least 5/5 with MMT by 05/31/19. LTG Duration 8 weeks 3 Impairment Decreased ROM Fdc Goal (LTG) Pt will present with B SLR to at least 80 deg without LB or leg pain by 05/31/19. LTG Duration 8 weeks 2 Impairment Pain Fdc Goal (LTG) Pt will report an overall 75% improvement in pain by 05/31/19 . LTG Duration 8 weeks 1 Impairment Oswestry reflects 52% impairment Fdc Goal (LTG) Pt will present with an improved Oswestry LBP scale score to reflect no more than 30% impairment by 05/31/19. LTG Duration 8 weeks Assessment Summary Assessment Reviewed HEP pelvic alignment exercises, provided feedback throughout for slow controlled pacing into/out of muscle activation durign exercises to allow for pelvic/ spinal stabilzation with positive results. Added leg lengthening L>R to assist pain reducation and radulopathy, positive results post cuing for knee bent modification to allow for pelvic /LS stabilization with slow pacing into/out of lengthening movement. Pt reported pain level better than when arrived 2-3/10. Physical Therapy Plan Frequency and Duration Frequency of Treatment 2x/Week Duration of Treatment 8 weeks Plan of Care Start Date 03/29/19 Plan of Care End Date 05/31/19 Therapeutic Interventions Therapeutic Interventions Balance Training,Home Exercise Program,Joint Mobilizations, Manual Therapy,Neuromuscular Re-education,Orthotic/ Prosthetic Management,Patient/ Caregiver Education,Self-Care/ Home Management,Soft Tissue Mobilization,Taping, Therapeutic Exercises Modalities Cold Pack/Ice Massage,Electric Stimulation,Hot Packs, Ultrasound Next Visit Focus/Plan Next Note Type Treatment Note Next Visit Plan Assess added leg lenghening and PF stretch last tx. Add hip flex stretch:neena supine /TFL standing or review ball roll TFL at wall then progress strengthening hip abd: standing or sidelying . PT POC suggestions: Consider easing into further flexibility for hip and posterior leg, hip flexor. Gentle progressive core work-- might consider standing multifidi and hip abduction and extension training. Pt requires a lot of cues not to overdo activities. Consider pelvic floor plan adjuster possibly in the future.
--- NOTE | 2019-04-21 09:05 | PT.OTN ---
Current Diagnoses Sciatica, unspecified side (04/21/19) Physical Therapy Treatment Note PT-OP-A Visit Information Start: 03/29/19 07:21 Freq: Status: Active Protocol: Document 04/21/19 08:15 SP (Rec: 04/21/19 11:23 SP [id number]) Out-Patient Physical Therapy Visit Information Visit Information Visit Type Treatment Note Visit Note 25 visits Visit Start Time 08:15 Visit Stop Time 09:05 Total Visit Minutes 50 Visit Number 01/10 Number of EMBEDDED DEVELOPER Visits 2 PT-OP-B Current Condition Start: 03/29/19 07:21 Freq: Status: Active Protocol: Document 03/29/19 08:15 MB (Rec: 03/29/19 08:55 MB [id number]) Current Condition History of Current Condition Onset Date 02/17/19 History of Current Condition Pt got off plane from [place] to [place] and she had left left pain in her buttock and leg. Pt reports that getting OOB and putting left leg on the floor makes her left leg hurt the worse. Pt reports intermittent pain and has trouble rating it. Driving time in the car, too much time sitting, and not walking increase her pain. She has had low pain to a couple of 8-9/ 10 mornings. She had a 10/10 morning and thought she was going to faint 3 weeks ago. That prompted her to see Dr. Elliott. Pt reports numbness left plantar fascia near met heads. She reports she feels like she has an extra sock in the area. It is pretty constant. She is sleeping on her back with a pillow under her knees and her pain is better. She has slippers next to the bed that she puts on in the morning. She has pain on her ischial tuberosity with sitting. Her assisted her with scooting in the bed, putting his hand under her left ischial tuberosity and this increased the pain. She feels like her gait is off and she is walking slowly. PT-OP-C Subjective Start: 03/29/19 07:21 Freq: Status: Active Protocol: Document 04/21/19 08:15 SP (Rec: 04/21/19 11:23 SP [id number]) OP-PT Subjective Patient Comments Patient Comments Pt stated responded well to added leg lengthening last tx and did at home but L ankle sore after cross leg glut stretch but feels good for her hip. Pt reported when woke up this morning her LBP was 8/ 10 and radiating into L glut and HS but maybe 4/10 pre PT. Has been sleeping on her back with pillow under pelvis and seems to be helping, compliant with HEP and wanting to review today to be sure doing correctly, not seeing significant changes in pain. PT-OP-J Posture/Palpation/Skin Start: 03/29/19 07:21 Freq: Status: Active Protocol: Document 03/29/19 08:15 MB (Rec: 03/29/19 15:11 MB [id number]) Posture Evaluation Comments Posture Comments Standing: Dowager's hump, decreased thoracic kyphosis, increased lumbar lordosis, right handed and right shoulder lower than the left, right iliac crest mildly higher than the left PT-OP-K Range of Motion Start: 03/29/19 07:21 Freq: Status: Active Protocol: Document 03/29/19 08:15 MB (Rec: 03/29/19 15:11 MB [id number]) Hip Goniometric Range of Motion Hip ROM Limitations Comments PT attempts SLR with pt supine and pt yelps in pain. Unable to SLR left greater than 30 deg. Pt reports buttocks and hamstring discomfort, not rated. Deferred left hip and knee MMT d/t her response and fear of pain PT-OP-M Strength Start: 03/29/19 07:21 Freq: Status: Active Protocol: Document 03/29/19 08:15 MB (Rec: 03/29/19 15:11 MB [id number]) Hip Strength Hip Manual Muscle Testing Left Comments Supine deferred d/t pt's response with SLR and fear of pain Right Flexion (L2) 4 Good Abduction 3 Fair Comments Supine Knee Strength Knee Manual Muscle Testing Left Comments Deferred d/t pt's response with SLR and fear of pain Right Flexion (S2) 5 Normal Extension (L3) 5 Normal Comments Supine Ankle/Foot Strength Ankle and Foot Manual Muscle Testing Left Dorsiflexion (L4) 5 Normal Plantarflexion (S1) 5 Normal Inversion 5 Normal Eversion (S1) 5 Normal Comments Great toe 4/5 Right Dorsiflexion (L4) 5 Normal Plantarflexion (S1) 5 Normal Inversion 5 Normal Eversion (S1) 5 Normal Comments Great toe 5/5 PT-OP-Q Treatments Start: 03/29/19 07:21 Freq: Status: Active Protocol: Document 04/21/19 08:15 SP (Rec: 04/21/19 11:23 SP [id number]) Therapeutic Exercises Supine Exercises HS stretch w & w/o ankle pump Reps/Minutes 10sec Comments slow leg extension until meet resistance if ok can add ankle pump Leg lengthening Reps/Minutes 5-10 sec hold x5 Comments cued PPT, level pelvis slow lengthening heel press away Diaphragmatic breathing Reps/Minutes x5 Comments Performed again this date in hook lying Pelvic realigment exercises Reps/Minutes 3 hold x5 each Comments Reviewed again this date Prone Exercises Child's Pose Reps/Minutes 30 sec x2 Comments added side bend ok to R but little pull on L SI area into glut Prone lying Equipment Used pillow under pelvis Comments Pt is able to tolerate this date, 8 min during manual Sitting Exercises Therapy ball abdominal drawing in and pelvic rocking Sitting Exercise Name ab drawing in, pelvic rocking Equipment Used 55cm kuwaiti ball (brought personal) Reps/Minutes x10 Comments cued slow movement pelvic movement not forward backward with legs Manual Therapy Treatment Soft Tissue Mobilization HS, glut Body Location HS, Mobilization Type Myofascial Release,Sustained Pressure Intensity/Depth Moderate Body Position Prone Comments tolerated well PT-OP-R Modalities Start: 03/29/19 07:21 Freq: Status: Active Protocol: Document 04/21/19 08:15 SP (Rec: 04/21/19 11:23 SP [email or web address]) Hot Pack/Cold Pack Treatment CP Location L SI, Glut Patient Position Hooklying Treatment Duration (minutes) 10 Patient Tolerance Fair Comments Does feel little better PT-OP-T Assessment and Plan Start: 03/29/19 07:21 Freq: Status: Active Protocol: Document 04/21/19 08:15 SP (Rec: 04/21/19 11:23 SP [email or web address]) Physical Therapy Assessment Goals 5 Booth Manager Goal (LTG) Pt will perform progressive HEP including postural, pelvic alignment, flexibility, strengthening and balance exercises with I by 05/31/19. LTG Duration 8 weeks 4 Impairment Weakness Booth Manager Goal (LTG) Pt will present with B hip flexion and abduction, knee flexion and extension to at least 5/5 with MMT by 05/31/19. LTG Duration 8 weeks 3 Impairment Decreased ROM Booth Manager Goal (LTG) Pt will present with B SLR to at least 80 deg without LB or leg pain by 05/31/19. LTG Duration 8 weeks 2 Impairment Pain Jail Goal (LTG) Pt will report an overall 75% improvement in pain by 05/31/19 . LTG Duration 8 weeks 1 Impairment Oswestry reflects 52% impairment Booth Manager Goal (LTG) Pt will present with an improved Oswestry LBP scale score to reflect no more than 30% impairment by 05/31/19. LTG Duration 8 weeks Assessment Summary Assessment Provided education use of pillows insidelying L between legs to assist spinal and hip alignment knowing like to side sleep. Reviewed HEP, continued cuing for slow pacing into/out of exercises to decrease spasming reported during performance with improvement. Pt reported no change in pain level during exercises, felt little better post manual to glut/hs and suggested performing ball roll at wall provided as HEP at home for assist pain. Trialed HS stretch with ankle pump today for assist HS pain with minimal improvement. Pt welcoming to CP to L glut/post thigh end of tx for pain control with positive feedback reducation in pain 2-310. Physical Therapy Plan Frequency and Duration Frequency of Treatment 2x/Week Duration of Treatment 8 weeks Plan of Care Start Date 03/29/19 Plan of Care End Date 05/31/19 Therapeutic Interventions Therapeutic Interventions Balance Training,Home Exercise Program,Joint Mobilizations, Manual Therapy,Neuromuscular Re-education,Orthotic/ Prosthetic Management,Patient/ Caregiver Education,Self-Care/ Home Management,Soft Tissue Mobilization,Taping, Therapeutic Exercises Modalities Cold Pack/Ice Massage,Electric Stimulation,Hot Packs, Ultrasound Next Visit Focus/Plan Next Note Type Treatment Note Next Visit Plan Added CP last tx and reviewed HEP: assess post tx. Add hip flex stretch:neena supine /TFL standing or review ball roll TFL at wall then progress strengthening hip abd : standing or sidelying . PT POC suggestions: Consider easing into further flexibility for hip and posterior leg, hip flexor. Gentle progressive core work-- might consider standing multifidi and hip abduction and extension training. Pt requires a lot of cues not to overdo activities. Consider pelvic floor scrubber possibly in the future.
--- NOTE | 2019-04-26 09:01 | PT.OTN ---
Current Diagnoses Sciatica, unspecified side (04/26/19) Physical Therapy Treatment Note PT-OP-A Visit Information Start: 03/29/19 07:21 Freq: Status: Active Protocol: Document 04/26/19 08:20 MB (Rec: 04/26/19 09:00 MB [id number]) Out-Patient Physical Therapy Visit Information Visit Information Visit Type Treatment Note Visit Note 25 visits Visit Start Time 08:20 Visit Stop Time 09:00 Total Visit Minutes 40 Visit Number 02/10 Number of OUTBOUND TELEMARKETER Visits 2 PT-OP-B Current Condition Start: 03/29/19 07:21 Freq: Status: Active Protocol: Document 03/29/19 08:15 MB (Rec: 03/29/19 08:55 MB [id number]) Current Condition History of Current Condition Onset Date 02/17/19 History of Current Condition Pt got off plane from [place] to [place] and she had left left pain in her buttock and leg. Pt reports that getting OOB and putting left leg on the floor makes her left leg hurt the worse. Pt reports intermittent pain and has trouble rating it. Driving time in the car, too much time sitting, and not walking increase her pain. She has had low pain to a couple of 8-9/ 10 mornings. She had a 10/10 morning and thought she was going to faint 3 weeks ago. That prompted her to see Dr. Elliott. Pt reports numbness left plantar fascia near met heads. She reports she feels like she has an extra sock in the area. It is pretty constant. She is sleeping on her back with a pillow under her knees and her pain is better. She has slippers next to the bed that she puts on in the morning. She has pain on her ischial tuberosity with sitting. Her assisted her with scooting in the bed, putting his hand under her left ischial tuberosity and this increased the pain. She feels like her gait is off and she is walking slowly. PT-OP-C Subjective Start: 03/29/19 07:21 Freq: Status: Active Protocol: Document 04/26/19 08:20 MB (Rec: 04/26/19 09:00 MB [id number]) OP-PT Subjective Patient Comments Patient Comments Pt states that she used the elliptical and then got left lateral leg tightness and then sat with the cat on her lap for 40 minutes last night and she had a bad morning. She reports 5-6/10 pain. Pt has a Temperpedic mattress, 6 months old. PT-OP-J Posture/Palpation/Skin Start: 03/29/19 07:21 Freq: Status: Active Protocol: Document 03/29/19 08:15 MB (Rec: 03/29/19 15:11 MB [id number]) Posture Evaluation Comments Posture Comments Standing: Dowager's hump, decreased thoracic kyphosis, increased lumbar lordosis, right handed and right shoulder lower than the left, right iliac crest mildly higher than the left PT-OP-K Range of Motion Start: 03/29/19 07:21 Freq: Status: Active Protocol: Document 03/29/19 08:15 MB (Rec: 03/29/19 15:11 MB [id number]) Hip Goniometric Range of Motion Hip ROM Limitations Comments PT attempts SLR with pt supine and pt yelps in pain. Unable to SLR left greater than 30 deg. Pt reports buttocks and hamstring discomfort, not rated. Deferred left hip and knee MMT d/t her response and fear of pain PT-OP-M Strength Start: 03/29/19 07:21 Freq: Status: Active Protocol: Document 03/29/19 08:15 MB (Rec: 03/29/19 15:11 MB [id number]) Hip Strength Hip Manual Muscle Testing Left Comments Supine deferred d/t pt's response with SLR and fear of pain Right Flexion (L2) 4 Good Abduction 3 Fair Comments Supine Knee Strength Knee Manual Muscle Testing Left Comments Deferred d/t pt's response with SLR and fear of pain Right Flexion (S2) 5 Normal Extension (L3) 5 Normal Comments Supine Ankle/Foot Strength Ankle and Foot Manual Muscle Testing Left Dorsiflexion (L4) 5 Normal Plantarflexion (S1) 5 Normal Inversion 5 Normal Eversion (S1) 5 Normal Comments Great toe 4/5 Right Dorsiflexion (L4) 5 Normal Plantarflexion (S1) 5 Normal Inversion 5 Normal Eversion (S1) 5 Normal Comments Great toe 5/5 PT-OP-Q Treatments Start: 03/29/19 07:21 Freq: Status: Active Protocol: Document 04/26/19 08:20 MB (Rec: 04/26/19 09:00 MB [id number]) Therapeutic Exercises Supine Exercises Daniel stretch Comments Performed B with hands under opposite leg, added to HEP Standing Exercises Racquet ball massage glutes and posterior vastus lateralis Comments Progressed this date and ed pt to be blackman, no referral Manual Therapy Treatment Soft Tissue Mobilization STM left vastus lateralis Comments PT performs with rolling pin and then teaches pt and will add to HEP in future PT-OP-R Modalities Start: 03/29/19 07:21 Freq: Status: Active Protocol: Document 04/21/19 08:15 SP (Rec: 04/21/19 11:23 SP [email or web address]) Hot Pack/Cold Pack Treatment CP Location L SI, Glut Patient Position Hooklying Treatment Duration (minutes) 10 Patient Tolerance Fair Comments Does feel little better PT-OP-T Assessment and Plan Start: 03/29/19 07:21 Freq: Status: Active Protocol: Document 04/26/19 08:20 MB (Rec: 04/26/19 09:00 MB [id number]) Physical Therapy Assessment Goals 5 Newspaper Carriers Supervisor Goal (LTG) Pt will perform progressive HEP including postural, pelvic alignment, flexibility, strengthening and balance exercises with I by 05/31/19. LTG Duration 8 weeks 4 Impairment Weakness Senior Care Goal (LTG) Pt will present with B hip flexion and abduction, knee flexion and extension to at least 5/5 with MMT by 05/31/19. LTG Duration 8 weeks 3 Impairment Decreased ROM Senior Care Goal (LTG) Pt will present with B SLR to at least 80 deg without LB or leg pain by 05/31/19. LTG Duration 8 weeks 2 Impairment Pain Newspaper Carriers Supervisor Goal (LTG) Pt will report an overall 75% improvement in pain by 05/31/19 . LTG Duration 8 weeks 1 Impairment Oswestry reflects 52% impairment Senior Care Goal (LTG) Pt will present with an improved Oswestry LBP scale score to reflect no more than 30% impairment by 05/31/19. LTG Duration 8 weeks Assessment Summary Assessment D/cd sitting hip rotator stretch d/t increased pain, consider adding in hook lying in the future. Added hip flexor stretch, racquet ball massage posterior portion left vastus lateralis and glutes, increased time performing all exercises d/t pt response/ symptoms. Physical Therapy Plan Frequency and Duration Frequency of Treatment 2x/Week Duration of Treatment 8 weeks Plan of Care Start Date 03/29/19 Plan of Care End Date 05/31/19 Therapeutic Interventions Therapeutic Interventions Balance Training,Home Exercise Program,Joint Mobilizations, Manual Therapy,Neuromuscular Re-education,Orthotic/ Prosthetic Management,Patient/ Caregiver Education,Self-Care/ Home Management,Soft Tissue Mobilization,Taping, Therapeutic Exercises Modalities Cold Pack/Ice Massage,Electric Stimulation,Hot Packs, Ultrasound Next Visit Focus/Plan Next Note Type Treatment Note Next Visit Plan Consider adding rolling pin for home, progress hip strengthening and core strengthening. Consider calf stretching as well. Consider pelvic gaming floor supervisor possibly in the future.
--- NOTE | 2019-04-30 10:31 | PT.OTN ---
Current Diagnoses Sciatica, unspecified side (04/30/19) Physical Therapy Treatment Note PT-OP-A Visit Information Start: 03/29/19 07:21 Freq: Status: Active Protocol: Document 04/30/19 09:51 MB (Rec: 04/30/19 10:31 MB [id number]) Out-Patient Physical Therapy Visit Information Visit Information Visit Type Treatment Note Visit Note 25 visits Visit Start Time 09:51 Visit Stop Time 10:30 Total Visit Minutes 39 Visit Number 03/12 Number of ITEM PROCESSOR Visits 2 PT-OP-B Current Condition Start: 03/29/19 07:21 Freq: Status: Active Protocol: Document 03/29/19 08:15 MB (Rec: 03/29/19 08:55 MB [id number]) Current Condition History of Current Condition Onset Date 02/17/19 History of Current Condition Pt got off plane from [place] to [place] and she had left left pain in her buttock and leg. Pt reports that getting OOB and putting left leg on the floor makes her left leg hurt the worse. Pt reports intermittent pain and has trouble rating it. Driving time in the car, too much time sitting, and not walking increase her pain. She has had low pain to a couple of 8-9/ 10 mornings. She had a 10/10 morning and thought she was going to faint 3 weeks ago. That prompted her to see Dr. Elliott. Pt reports numbness left plantar fascia near met heads. She reports she feels like she has an extra sock in the area. It is pretty constant. She is sleeping on her back with a pillow under her knees and her pain is better. She has slippers next to the bed that she puts on in the morning. She has pain on her ischial tuberosity with sitting. Her assisted her with scooting in the bed, putting his hand under her left ischial tuberosity and this increased the pain. She feels like her gait is off and she is walking slowly. PT-OP-C Subjective Start: 03/29/19 07:21 Freq: Status: Active Protocol: Document 04/30/19 09:51 MB (Rec: 04/30/19 10:31 MB [id number]) OP-PT Subjective Patient Comments Patient Comments Pt states that she had a couple of mornings with less pain in her left leg and rates it as 2/10. This morning was a 07/26. The difference is possibly getting on the elliptical for 1 hour yesterday, sitting at piano for an hour yesterday. She went for a walk the previous two days. PT-OP-J Posture/Palpation/Skin Start: 03/29/19 07:21 Freq: Status: Active Protocol: Document 03/29/19 08:15 MB (Rec: 03/29/19 15:11 MB [id number]) Posture Evaluation Comments Posture Comments Standing: Dowager's hump, decreased thoracic kyphosis, increased lumbar lordosis, right handed and right shoulder lower than the left, right iliac crest mildly higher than the left PT-OP-K Range of Motion Start: 03/29/19 07:21 Freq: Status: Active Protocol: Document 03/29/19 08:15 MB (Rec: 03/29/19 15:11 MB [id number]) Hip Goniometric Range of Motion Hip ROM Limitations Comments PT attempts SLR with pt supine and pt yelps in pain. Unable to SLR left greater than 30 deg. Pt reports buttocks and hamstring discomfort, not rated. Deferred left hip and knee MMT d/t her response and fear of pain PT-OP-M Strength Start: 03/29/19 07:21 Freq: Status: Active Protocol: Document 03/29/19 08:15 MB (Rec: 03/29/19 15:11 MB [id number]) Hip Strength Hip Manual Muscle Testing Left Comments Supine deferred d/t pt's response with SLR and fear of pain Right Flexion (L2) 4 Good Abduction 3 Fair Comments Supine Knee Strength Knee Manual Muscle Testing Left Comments Deferred d/t pt's response with SLR and fear of pain Right Flexion (S2) 5 Normal Extension (L3) 5 Normal Comments Supine Ankle/Foot Strength Ankle and Foot Manual Muscle Testing Left Dorsiflexion (L4) 5 Normal Plantarflexion (S1) 5 Normal Inversion 5 Normal Eversion (S1) 5 Normal Comments Great toe 4/5 Right Dorsiflexion (L4) 5 Normal Plantarflexion (S1) 5 Normal Inversion 5 Normal Eversion (S1) 5 Normal Comments Great toe 5/5 PT-OP-Q Treatments Start: 03/29/19 07:21 Freq: Status: Active Protocol: Document 04/30/19 09:51 MB (Rec: 04/30/19 10:31 MB [id number]) Therapeutic Exercises Supine Exercises Core progression, abdominal drawing in Comments Performed today and added to HEP Sitting Exercises Rolling pin massage sitting Comments Rolling pin massage for home, quads Standing Exercises Calf stretch standing, MWM toe raises Comments Performed this date and added to HEP PT-OP-R Modalities Start: 03/29/19 07:21 Freq: Status: Active Protocol: Document 04/21/19 08:15 SP (Rec: 04/21/19 11:23 SP [id number]) Hot Pack/Cold Pack Treatment CP Location L SI, Glut Patient Position Hooklying Treatment Duration (minutes) 10 Patient Tolerance Fair Comments Does feel little better PT-OP-T Assessment and Plan Start: 03/29/19 07:21 Freq: Status: Active Protocol: Document 04/30/19 09:51 MB (Rec: 04/30/19 10:31 MB [id number]) Physical Therapy Assessment Goals 5 Skilled Nursing Goal (LTG) Pt will perform progressive HEP including postural, pelvic alignment, flexibility, strengthening and balance exercises with I by 05/31/19. LTG Duration 8 weeks 4 Impairment Weakness Plant Anatomist Goal (LTG) Pt will present with B hip flexion and abduction, knee flexion and extension to at least 5/5 with MMT by 05/31/19. LTG Duration 8 weeks 3 Impairment Decreased ROM Plant Anatomist Goal (LTG) Pt will present with B SLR to at least 80 deg without LB or leg pain by 05/31/19. LTG Duration 8 weeks 2 Impairment Pain Skilled Nursing Goal (LTG) Pt will report an overall 75% improvement in pain by 05/31/19 . LTG Duration 8 weeks 1 Impairment Oswestry reflects 52% impairment Skilled Nursing Goal (LTG) Pt will present with an improved Oswestry LBP scale score to reflect no more than 30% impairment by 05/31/19. LTG Duration 8 weeks Assessment Summary Assessment Added rolling pin massage, calf stretching and core progression today. Pt has trouble with first position and so will add exercises 2-3 in future, glute strengthening in standing with band. Physical Therapy Plan Frequency and Duration Frequency of Treatment 2x/Week Duration of Treatment 8 weeks Plan of Care Start Date 03/29/19 Plan of Care End Date 05/31/19 Therapeutic Interventions Therapeutic Interventions Balance Training,Home Exercise Program,Joint Mobilizations, Manual Therapy,Neuromuscular Re-education,Orthotic/ Prosthetic Management,Patient/ Caregiver Education,Self-Care/ Home Management,Soft Tissue Mobilization,Taping, Therapeutic Exercises Modalities Cold Pack/Ice Massage,Electric Stimulation,Hot Packs, Ultrasound Next Visit Focus/Plan Next Note Type Treatment Note Next Visit Plan Review exercises and progress abdominal drawing in exercises . Add hip strengthening. Consider pelvic hardwood floor refinisher possibly in the future.
--- NOTE | 2019-05-03 09:07 | PT.OTN ---
Current Diagnoses Sciatica, unspecified side (05/03/19) Physical Therapy Treatment Note PT-OP-A Visit Information Start: 03/29/19 07:21 Freq: Status: Active Protocol: Document 05/03/19 08:20 MB (Rec: 05/03/19 09:06 MB [id number]) Out-Patient Physical Therapy Visit Information Visit Information Visit Type Treatment Note Visit Note 25 visits Visit Start Time 08:20 Visit Stop Time 09:00 Total Visit Minutes 40 Visit Number 04/12 Number of BRAND SALES CONSULTANT Visits 2 PT-OP-B Current Condition Start: 03/29/19 07:21 Freq: Status: Active Protocol: Document 03/29/19 08:15 MB (Rec: 03/29/19 08:55 MB [id number]) Current Condition History of Current Condition Onset Date 02/17/19 History of Current Condition Pt got off plane from [place] to [place] and she had left left pain in her buttock and leg. Pt reports that getting OOB and putting left leg on the floor makes her left leg hurt the worse. Pt reports intermittent pain and has trouble rating it. Driving time in the car, too much time sitting, and not walking increase her pain. She has had low pain to a couple of 8-9/ 10 mornings. She had a 10/10 morning and thought she was going to faint 3 weeks ago. That prompted her to see Dr. Elliott. Pt reports numbness left plantar fascia near met heads. She reports she feels like she has an extra sock in the area. It is pretty constant. She is sleeping on her back with a pillow under her knees and her pain is better. She has slippers next to the bed that she puts on in the morning. She has pain on her ischial tuberosity with sitting. Her assisted her with scooting in the bed, putting his hand under her left ischial tuberosity and this increased the pain. She feels like her gait is off and she is walking slowly. PT-OP-C Subjective Start: 03/29/19 07:21 Freq: Status: Active Protocol: Document 05/03/19 08:20 MB (Rec: 05/03/19 09:06 MB [id number]) OP-PT Subjective Patient Comments Patient Comments Pt states that the improvement she has been feeling is sustaining. She did not have to hold on to hallway in the morning when she got up for 5 days. PT-OP-J Posture/Palpation/Skin Start: 03/29/19 07:21 Freq: Status: Active Protocol: Document 03/29/19 08:15 MB (Rec: 03/29/19 15:11 MB [id number]) Posture Evaluation Comments Posture Comments Standing: Dowager's hump, decreased thoracic kyphosis, increased lumbar lordosis, right handed and right shoulder lower than the left, right iliac crest mildly higher than the left PT-OP-K Range of Motion Start: 03/29/19 07:21 Freq: Status: Active Protocol: Document 03/29/19 08:15 MB (Rec: 03/29/19 15:11 MB [id number]) Hip Goniometric Range of Motion Hip ROM Limitations Comments PT attempts SLR with pt supine and pt yelps in pain. Unable to SLR left greater than 30 deg. Pt reports buttocks and hamstring discomfort, not rated. Deferred left hip and knee MMT d/t her response and fear of pain PT-OP-M Strength Start: 03/29/19 07:21 Freq: Status: Active Protocol: Document 03/29/19 08:15 MB (Rec: 03/29/19 15:11 MB [id number]) Hip Strength Hip Manual Muscle Testing Left Comments Supine deferred d/t pt's response with SLR and fear of pain Right Flexion (L2) 4 Good Abduction 3 Fair Comments Supine Knee Strength Knee Manual Muscle Testing Left Comments Deferred d/t pt's response with SLR and fear of pain Right Flexion (S2) 5 Normal Extension (L3) 5 Normal Comments Supine Ankle/Foot Strength Ankle and Foot Manual Muscle Testing Left Dorsiflexion (L4) 5 Normal Plantarflexion (S1) 5 Normal Inversion 5 Normal Eversion (S1) 5 Normal Comments Great toe 4/5 Right Dorsiflexion (L4) 5 Normal Plantarflexion (S1) 5 Normal Inversion 5 Normal Eversion (S1) 5 Normal Comments Great toe 5/5 PT-OP-Q Treatments Start: 03/29/19 07:21 Freq: Status: Active Protocol: Document 05/03/19 08:20 MB (Rec: 05/03/19 09:06 MB [id number]) Therapeutic Exercises Supine Exercises Core progression, abdominal drawing in Comments Performed today legs straight and bent, 10 reps and pt performs better Standing Exercises Hip extension and abduction with level 1 band, core engagement Comments Performed and added to HEP this date, cues for form Manual Therapy Treatment Manual Techniques SCS Sacrum Comments Left SI stiffness improved with Counterstrain PT-OP-R Modalities Start: 03/29/19 07:21 Freq: Status: Active Protocol: Document 04/21/19 08:15 SP (Rec: 04/21/19 11:23 SP [id number]) Hot Pack/Cold Pack Treatment CP Location L SI, Glut Patient Position Hooklying Treatment Duration (minutes) 10 Patient Tolerance Fair Comments Does feel little better PT-OP-T Assessment and Plan Start: 03/29/19 07:21 Freq: Status: Active Protocol: Document 05/03/19 08:20 MB (Rec: 05/03/19 09:06 MB [id number]) Physical Therapy Assessment Goals 5 Hospital Education Coordinator Goal (LTG) Pt will perform progressive HEP including postural, pelvic alignment, flexibility, strengthening and balance exercises with I by 05/31/19. LTG Duration 8 weeks 4 Impairment Weakness Hospital Education Coordinator Goal (LTG) Pt will present with B hip flexion and abduction, knee flexion and extension to at least 5/5 with MMT by 05/31/19. LTG Duration 8 weeks 3 Impairment Decreased ROM Hospital Education Coordinator Goal (LTG) Pt will present with B SLR to at least 80 deg without LB or leg pain by 05/31/19. LTG Duration 8 weeks 2 Impairment Pain Residential Goal (LTG) Pt will report an overall 75% improvement in pain by 05/31/19 . LTG Duration 8 weeks 1 Impairment Oswestry reflects 52% impairment Hospital Education Coordinator Goal (LTG) Pt will present with an improved Oswestry LBP scale score to reflect no more than 30% impairment by 05/31/19. LTG Duration 8 weeks Assessment Summary Assessment Pt presents with cyst-like area over left SI joint. Her pelvis moves well with SI mobility testing. She responds well to sacral counterstrain and she has less pain after treatment. Ed pt on benefits of SI belt and seeing doctor about cyst-like area. Physical Therapy Plan Frequency and Duration Frequency of Treatment 2x/Week Duration of Treatment 8 weeks Plan of Care Start Date 03/29/19 Plan of Care End Date 05/31/19 Therapeutic Interventions Therapeutic Interventions Balance Training,Home Exercise Program,Joint Mobilizations, Manual Therapy,Neuromuscular Re-education,Orthotic/ Prosthetic Management,Patient/ Caregiver Education,Self-Care/ Home Management,Soft Tissue Mobilization,Taping, Therapeutic Exercises Modalities Cold Pack/Ice Massage,Electric Stimulation,Hot Packs, Ultrasound Next Visit Focus/Plan Next Note Type Treatment Note Next Visit Plan Review exercises and progress abdominal drawing in exercises . Consider pelvic fur floor worker possibly in the future.
--- NOTE | 2019-05-05 09:00 | PT.OTN ---
Current Diagnoses Sciatica, unspecified side (05/05/19) Physical Therapy Treatment Note PT-OP-A Visit Information Start: 03/29/19 07:21 Freq: Status: Active Protocol: Document 05/05/19 08:16 SP (Rec: 05/05/19 09:03 SP [id number]) Out-Patient Physical Therapy Visit Information Visit Information Visit Type Treatment Note Visit Note 25 visits Visit Start Time 08:16 Visit Stop Time 09:00 Total Visit Minutes 44 Visit Number 05/12 Number of PUBLIC HEALTH PROFESSOR Visits 1 PT-OP-B Current Condition Start: 03/29/19 07:21 Freq: Status: Active Protocol: Document 03/29/19 08:15 MB (Rec: 03/29/19 08:55 MB [id number]) Current Condition History of Current Condition Onset Date 02/17/19 History of Current Condition Pt got off plane from [place] to [place] and she had left left pain in her buttock and leg. Pt reports that getting OOB and putting left leg on the floor makes her left leg hurt the worse. Pt reports intermittent pain and has trouble rating it. Driving time in the car, too much time sitting, and not walking increase her pain. She has had low pain to a couple of 8-9/ 10 mornings. She had a 10/10 morning and thought she was going to faint 3 weeks ago. That prompted her to see Dr. Elliott. Pt reports numbness left plantar fascia near met heads. She reports she feels like she has an extra sock in the area. It is pretty constant. She is sleeping on her back with a pillow under her knees and her pain is better. She has slippers next to the bed that she puts on in the morning. She has pain on her ischial tuberosity with sitting. Her assisted her with scooting in the bed, putting his hand under her left ischial tuberosity and this increased the pain. She feels like her gait is off and she is walking slowly. PT-OP-C Subjective Start: 03/29/19 07:21 Freq: Status: Active Protocol: Document 05/05/19 08:16 SP (Rec: 05/05/19 09:03 SP [id number]) OP-PT Subjective Patient Comments Patient Comments Pt stated continues to make improvement, going on 8 days of feeling is sustaining in the am where she She did not have to hold on to hallway in the morning. PT-OP-J Posture/Palpation/Skin Start: 03/29/19 07:21 Freq: Status: Active Protocol: Document 03/29/19 08:15 MB (Rec: 03/29/19 15:11 MB [id number]) Posture Evaluation Comments Posture Comments Standing: Dowager's hump, decreased thoracic kyphosis, increased lumbar lordosis, right handed and right shoulder lower than the left, right iliac crest mildly higher than the left PT-OP-K Range of Motion Start: 03/29/19 07:21 Freq: Status: Active Protocol: Document 03/29/19 08:15 MB (Rec: 03/29/19 15:11 MB [id number]) Hip Goniometric Range of Motion Hip ROM Limitations Comments PT attempts SLR with pt supine and pt yelps in pain. Unable to SLR left greater than 30 deg. Pt reports buttocks and hamstring discomfort, not rated. Deferred left hip and knee MMT d/t her response and fear of pain PT-OP-M Strength Start: 03/29/19 07:21 Freq: Status: Active Protocol: Document 03/29/19 08:15 MB (Rec: 03/29/19 15:11 MB [id number]) Hip Strength Hip Manual Muscle Testing Left Comments Supine deferred d/t pt's response with SLR and fear of pain Right Flexion (L2) 4 Good Abduction 3 Fair Comments Supine Knee Strength Knee Manual Muscle Testing Left Comments Deferred d/t pt's response with SLR and fear of pain Right Flexion (S2) 5 Normal Extension (L3) 5 Normal Comments Supine Ankle/Foot Strength Ankle and Foot Manual Muscle Testing Left Dorsiflexion (L4) 5 Normal Plantarflexion (S1) 5 Normal Inversion 5 Normal Eversion (S1) 5 Normal Comments Great toe 4/5 Right Dorsiflexion (L4) 5 Normal Plantarflexion (S1) 5 Normal Inversion 5 Normal Eversion (S1) 5 Normal Comments Great toe 5/5 PT-OP-Q Treatments Start: 03/29/19 07:21 Freq: Status: Active Protocol: Document 05/05/19 08:16 SP (Rec: 05/05/19 09:03 SP [id number]) Therapeutic Exercises Supine Exercises Ab heel slide Side bilateral Resistance AROM Reps/Minutes 5 x2 sets Core progression, abdominal drawing in Supine Exercise Name knees bent and propped up on bench Side bilateral Comments Performed today legs straight and bent, 10 reps and pt performs better Pelvic realigment exercises Reps/Minutes 3 hold x5 each Comments Reviewed again this date Sitting Exercises PF stretch Reps/Minutes 30 x3 Comments neutral pelvis on firm surface Standing Exercises Hip extension and abduction with level 1 band, core engagement Side bilateral Reps/Minutes 2x5 reps Comments Performed reviewed, cues for form Calf stretch standing, MWM toe raises Standing Exercise Name Gastroc, soleus, toe raise stretch Reps/Minutes 20 each position Comments Performed this date reviewed PT-OP-R Modalities Start: 03/29/19 07:21 Freq: Status: Active Protocol: Document 04/21/19 08:15 SP (Rec: 04/21/19 11:23 SP [id number]) Hot Pack/Cold Pack Treatment CP Location L SI, Glut Patient Position Hooklying Treatment Duration (minutes) 10 Patient Tolerance Fair Comments Does feel little better PT-OP-T Assessment and Plan Start: 03/29/19 07:21 Freq: Status: Active Protocol: Document 05/05/19 08:16 SP (Rec: 05/05/19 09:03 SP [id number]) Physical Therapy Assessment Goals 5 Fire Coordinator Goal (LTG) Pt will perform progressive HEP including postural, pelvic alignment, flexibility, strengthening and balance exercises with I by 05/31/19. LTG Duration 8 weeks 4 Impairment Weakness Nursing Home Goal (LTG) Pt will present with B hip flexion and abduction, knee flexion and extension to at least 5/5 with MMT by 05/31/19. LTG Duration 8 weeks 3 Impairment Decreased ROM Fire Coordinator Goal (LTG) Pt will present with B SLR to at least 80 deg without LB or leg pain by 05/31/19. LTG Duration 8 weeks 2 Impairment Pain Nursing Home Goal (LTG) Pt will report an overall 75% improvement in pain by 05/31/19 . LTG Duration 8 weeks 1 Impairment Oswestry reflects 52% impairment Fire Coordinator Goal (LTG) Pt will present with an improved Oswestry LBP scale score to reflect no more than 30% impairment by 05/31/19. LTG Duration 8 weeks Assessment Summary Assessment HEP review with cuing for neutral pelvis and trunk alignment during standing hip abd/ext. Progressed with ab facilitation heel slide with cuing for slow pacing movement and count to maintain neutral pelvis. Physical Therapy Plan Frequency and Duration Frequency of Treatment 2x/Week Duration of Treatment 8 weeks Plan of Care Start Date 03/29/19 Plan of Care End Date 05/31/19 Therapeutic Interventions Therapeutic Interventions Balance Training,Home Exercise Program,Joint Mobilizations, Manual Therapy,Neuromuscular Re-education,Orthotic/ Prosthetic Management,Patient/ Caregiver Education,Self-Care/ Home Management,Soft Tissue Mobilization,Taping, Therapeutic Exercises Modalities Cold Pack/Ice Massage,Electric Stimulation,Hot Packs, Ultrasound Next Visit Focus/Plan Next Note Type Treatment Note Next Visit Plan Assess response to added core facilitation heel slide last tx. Review exercises and progress abdominal drawing in exercises. Consider pelvic floor nurse possibly in the future.
--- NOTE | 2019-05-17 13:45 | PT.OTN ---
Current Diagnoses Sciatica, unspecified side (05/17/19) Physical Therapy Treatment Note PT-OP-A Visit Information Start: 03/29/19 07:21 Freq: Status: Active Protocol: Document 05/17/19 13:03 SP (Rec: 05/17/19 13:52 SP [id number]) Out-Patient Physical Therapy Visit Information Visit Information Visit Type Treatment Note Visit Note 25 visits Visit Start Time 13:03 Visit Stop Time 13:45 Total Visit Minutes 41 Visit Number Number of SCHOLASTIC APTITUDE TEST GRADER Visits 2 PT-OP-B Current Condition Start: 03/29/19 07:21 Freq: Status: Active Protocol: Document 03/29/19 08:15 MB (Rec: 03/29/19 08:55 MB [id number]) Current Condition History of Current Condition Onset Date 02/17/19 History of Current Condition Pt got off plane from [place] to [place] and she had left left pain in her buttock and leg. Pt reports that getting OOB and putting left leg on the floor makes her left leg hurt the worse. Pt reports intermittent pain and has trouble rating it. Driving time in the car, too much time sitting, and not walking increase her pain. She has had low pain to a couple of 8-9/ 10 mornings. She had a 10/10 morning and thought she was going to faint 3 weeks ago. That prompted her to see Dr. Elliott. Pt reports numbness left plantar fascia near met heads. She reports she feels like she has an extra sock in the area. It is pretty constant. She is sleeping on her back with a pillow under her knees and her pain is better. She has slippers next to the bed that she puts on in the morning. She has pain on her ischial tuberosity with sitting. Her assisted her with scooting in the bed, putting his hand under her left ischial tuberosity and this increased the pain. She feels like her gait is off and she is walking slowly. PT-OP-C Subjective Start: 03/29/19 07:21 Freq: Status: Active Protocol: Document 05/17/19 13:03 SP (Rec: 05/17/19 13:52 SP [id number]) OP-PT Subjective Patient Comments Patient Comments Pt stated felt pretty good upon arrival. Did well on flights to/from [facility] during the holidays, walked around as much as possible on flight and woke up this morning stepping out of bed little stiff, no pain and loosened up as day progressed. PT-OP-J Posture/Palpation/Skin Start: 03/29/19 07:21 Freq: Status: Active Protocol: Document 03/29/19 08:15 MB (Rec: 03/29/19 15:11 MB [id number]) Posture Evaluation Comments Posture Comments Standing: Dowager's hump, decreased thoracic kyphosis, increased lumbar lordosis, right handed and right shoulder lower than the left, right iliac crest mildly higher than the left PT-OP-K Range of Motion Start: 03/29/19 07:21 Freq: Status: Active Protocol: Document 03/29/19 08:15 MB (Rec: 03/29/19 15:11 MB [id number]) Hip Goniometric Range of Motion Hip ROM Limitations Comments PT attempts SLR with pt supine and pt yelps in pain. Unable to SLR left greater than 30 deg. Pt reports buttocks and hamstring discomfort, not rated. Deferred left hip and knee MMT d/t her response and fear of pain PT-OP-M Strength Start: 03/29/19 07:21 Freq: Status: Active Protocol: Document 03/29/19 08:15 MB (Rec: 03/29/19 15:11 MB [id number]) Hip Strength Hip Manual Muscle Testing Left Comments Supine deferred d/t pt's response with SLR and fear of pain Right Flexion (L2) 4 Good Abduction 3 Fair Comments Supine Knee Strength Knee Manual Muscle Testing Left Comments Deferred d/t pt's response with SLR and fear of pain Right Flexion (S2) 5 Normal Extension (L3) 5 Normal Comments Supine Ankle/Foot Strength Ankle and Foot Manual Muscle Testing Left Dorsiflexion (L4) 5 Normal Plantarflexion (S1) 5 Normal Inversion 5 Normal Eversion (S1) 5 Normal Comments Great toe 4/5 Right Dorsiflexion (L4) 5 Normal Plantarflexion (S1) 5 Normal Inversion 5 Normal Eversion (S1) 5 Normal Comments Great toe 5/5 PT-OP-Q Treatments Start: 03/29/19 07:21 Freq: Status: Active Protocol: Document 05/17/19 13:03 SP (Rec: 05/17/19 13:52 SP [id number]) Cardio Equipment Elliptical Duration (Minutes) 6 Resistance 4 Therapeutic Exercises Prone Exercises Child's Pose Prone Exercise Name with and without side bend Reps/Minutes 30 x3 Standing Exercises adductor Side bilateral Reps/Minutes 30 x2 Other Exercises quadruped Other Exercise Name hip abd & extension then return start Side bilateral Resistance AROM Reps/Minutes x5 Comments cued level pelvis with floor during lift and return start pos Manual Therapy Treatment Soft Tissue Mobilization self rolling stick Body Location HS, adductor, upper glut posteriorly Mobilization Type Instrument Assisted Intensity/Depth Moderate Body Position seated Comments and standing QL, ES Mobilization Type Cross-Friction,Myofascial Release Intensity/Depth Moderate Body Position Prone Comments tolerated well PT-OP-R Modalities Start: 03/29/19 07:21 Freq: Status: Active Protocol: Document 04/21/19 08:15 SP (Rec: 04/21/19 11:23 SP [id number]) Hot Pack/Cold Pack Treatment CP Location L SI, Glut Patient Position Hooklying Treatment Duration (minutes) 10 Patient Tolerance Fair Comments Does feel little better PT-OP-T Assessment and Plan Start: 03/29/19 07:21 Freq: Status: Active Protocol: Document 05/17/19 13:03 SP (Rec: 05/17/19 13:52 SP [id number]) Physical Therapy Assessment Goals 5 [facility] Goal (LTG) Pt will perform progressive HEP including postural, pelvic alignment, flexibility, strengthening and balance exercises with I by 05/31/19. LTG Duration 8 weeks 4 Impairment Weakness Finance Associate Goal (LTG) Pt will present with B hip flexion and abduction, knee flexion and extension to at least 5/5 with MMT by 05/31/19. LTG Duration 8 weeks 3 Impairment Decreased ROM Finance Associate Goal (LTG) Pt will present with B SLR to at least 80 deg without LB or leg pain by 05/31/19. LTG Duration 8 weeks 2 Impairment Pain Finance Associate Goal (LTG) Pt will report an overall 75% improvement in pain by 05/31/19 . LTG Duration 8 weeks 1 Impairment Oswestry reflects 52% impairment [facility] Goal (LTG) Pt will present with an improved Oswestry LBP scale score to reflect no more than 30% impairment by 05/31/19. LTG Duration 8 weeks Assessment Summary Assessment Pt reported felt like incorporating adductor stretching/ opening up hip and trial elliptical. Added standing adductor stretch, quadruped hip abd/ext AROM with self rolling to HS, ITB, posterolateral hip at end to decrease little R sciatic irritation, tolerable knows there little more than when arrived into lateral thigh and not gone but ok. Will probabaly use racquet ball when got home. Physical Therapy Plan Frequency and Duration Frequency of Treatment 2x/Week Duration of Treatment 8 weeks Plan of Care Start Date 03/29/19 Plan of Care End Date 05/31/19 Therapeutic Interventions Therapeutic Interventions Balance Training,Home Exercise Program,Joint Mobilizations, Manual Therapy,Neuromuscular Re-education,Orthotic/ Prosthetic Management,Patient/ Caregiver Education,Self-Care/ Home Management,Soft Tissue Mobilization,Taping, Therapeutic Exercises Modalities Cold Pack/Ice Massage,Electric Stimulation,Hot Packs, Ultrasound Next Visit Focus/Plan Next Note Type Treatment Note Next Visit Plan Assess response to added hip abd/ext quadruped, child pose side bend and trial elliptical last tx. Continue per PT POC: Review exercises and progress abdominal drawing in exercises . Consider pelvic floor layer tile possibly in the future.
--- NOTE | 2019-05-20 09:02 | PT.OTN ---
Current Diagnoses Sciatica, unspecified side (05/20/19) Physical Therapy Treatment Note PT-OP-A Visit Information Start: 03/29/19 07:21 Freq: Status: Active Protocol: Document 05/20/19 08:19 MB (Rec: 05/20/19 09:02 MB [id number]) Out-Patient Physical Therapy Visit Information Visit Information Visit Type Treatment Note Visit Note 25 visits Visit Start Time 08:19 Visit Stop Time 08:59 Total Visit Minutes 40 Visit Number Number of SNACK FOODS MIXER OPERATOR Visits 2 PT-OP-B Current Condition Start: 03/29/19 07:21 Freq: Status: Active Protocol: Document 03/29/19 08:15 MB (Rec: 03/29/19 08:55 MB [id number]) Current Condition History of Current Condition Onset Date 02/17/19 History of Current Condition Pt got off plane from [place] to [place] and she had left left pain in her buttock and leg. Pt reports that getting OOB and putting left leg on the floor makes her left leg hurt the worse. Pt reports intermittent pain and has trouble rating it. Driving time in the car, too much time sitting, and not walking increase her pain. She has had low pain to a couple of 8-9/ 10 mornings. She had a 10/10 morning and thought she was going to faint 3 weeks ago. That prompted her to see Dr. Elliott. Pt reports numbness left plantar fascia near met heads. She reports she feels like she has an extra sock in the area. It is pretty constant. She is sleeping on her back with a pillow under her knees and her pain is better. She has slippers next to the bed that she puts on in the morning. She has pain on her ischial tuberosity with sitting. Her assisted her with scooting in the bed, putting his hand under her left ischial tuberosity and this increased the pain. She feels like her gait is off and she is walking slowly. PT-OP-C Subjective Start: 03/29/19 07:21 Freq: Status: Active Protocol: Document 05/20/19 08:19 MB (Rec: 05/20/19 09:02 MB [id number]) OP-PT Subjective Patient Comments Patient Comments Pt feels that she is doing better. She was able to manage flying to [place] and back and drive back to [employer]. She only had stiffness the next day in the morning. She is getting on the elliptical 10 minutes at a time and then stretching and then getting back on it up to an hour. She took a 5-6 mile walk yesterday . She sat a while at night when having her friends over. She sat 3-4 hours. She felt a little sore in the morning. She feels good that she can just about identify what causes her sxs. PT-OP-J Posture/Palpation/Skin Start: 03/29/19 07:21 Freq: Status: Active Protocol: Document 03/29/19 08:15 MB (Rec: 03/29/19 15:11 MB [id number]) Posture Evaluation Comments Posture Comments Standing: Dowager's hump, decreased thoracic kyphosis, increased lumbar lordosis, right handed and right shoulder lower than the left, right iliac crest mildly higher than the left PT-OP-K Range of Motion Start: 03/29/19 07:21 Freq: Status: Active Protocol: Document 03/29/19 08:15 MB (Rec: 03/29/19 15:11 MB [id number]) Hip Goniometric Range of Motion Hip ROM Limitations Comments PT attempts SLR with pt supine and pt yelps in pain. Unable to SLR left greater than 30 deg. Pt reports buttocks and hamstring discomfort, not rated. Deferred left hip and knee MMT d/t her response and fear of pain PT-OP-M Strength Start: 03/29/19 07:21 Freq: Status: Active Protocol: Document 03/29/19 08:15 MB (Rec: 03/29/19 15:11 MB [id number]) Hip Strength Hip Manual Muscle Testing Left Comments Supine deferred d/t pt's response with SLR and fear of pain Right Flexion (L2) 4 Good Abduction 3 Fair Comments Supine Knee Strength Knee Manual Muscle Testing Left Comments Deferred d/t pt's response with SLR and fear of pain Right Flexion (S2) 5 Normal Extension (L3) 5 Normal Comments Supine Ankle/Foot Strength Ankle and Foot Manual Muscle Testing Left Dorsiflexion (L4) 5 Normal Plantarflexion (S1) 5 Normal Inversion 5 Normal Eversion (S1) 5 Normal Comments Great toe 4/5 Right Dorsiflexion (L4) 5 Normal Plantarflexion (S1) 5 Normal Inversion 5 Normal Eversion (S1) 5 Normal Comments Great toe 5/5 PT-OP-Q Treatments Start: 03/29/19 07:21 Freq: Status: Active Protocol: Document 05/20/19 08:19 MB (Rec: 05/20/19 09:02 MB [id number]) Therapeutic Exercises Supine Exercises Hip adductor stretch in hook lying Comments Hook lying, knees dropping out Hamstring, calf and AP stretch with strap Comments Performed this date and added to HEP, ed 30 sec Prone Exercises Child's Pose Comments Performed x 5 reps today Other Exercises Plank Comments Pt has discomfort in left leg when plank elbows and hands after 10 sec PT-OP-R Modalities Start: 03/29/19 07:21 Freq: Status: Active Protocol: Document 04/21/19 08:15 SP (Rec: 04/21/19 11:23 SP [id number]) Hot Pack/Cold Pack Treatment CP Location L SI, Glut Patient Position Hooklying Treatment Duration (minutes) 10 Patient Tolerance Fair Comments Does feel little better PT-OP-T Assessment and Plan Start: 03/29/19 07:21 Freq: Status: Active Protocol: Document 05/20/19 08:19 MB (Rec: 05/20/19 09:02 MB [id number]) Physical Therapy Assessment Goals 5 Cottage Cheese Maker Goal (LTG) Pt will perform progressive HEP including postural, pelvic alignment, flexibility, strengthening and balance exercises with I by 05/31/19. LTG Duration 8 weeks 4 Impairment Weakness Cottage Cheese Maker Goal (LTG) Pt will present with B hip flexion and abduction, knee flexion and extension to at least 5/5 with MMT by 05/31/19. LTG Duration 8 weeks 3 Impairment Decreased ROM Snf Goal (LTG) Pt will present with B SLR to at least 80 deg without LB or leg pain by 05/31/19. LTG Duration 8 weeks 2 Impairment Pain Cottage Cheese Maker Goal (LTG) Pt will report an overall 75% improvement in pain by 05/31/19 . LTG Duration 8 weeks 1 Impairment Oswestry reflects 52% impairment Snf Goal (LTG) Pt will present with an improved Oswestry LBP scale score to reflect no more than 30% impairment by 05/31/19. LTG Duration 8 weeks Assessment Summary Assessment Added to exercises above: revised her HEP, written out and handouts. D/cd quadriped hip abduction and extension and standing adductor stretch. Pt's form is poor and she cannot remember exercises as instructed previously and she does not have handout. Added hook lying stretches to protect spine. Pt's plank form is weak and will need practice. She returns to Dr. Elliott today and will communicate progress with PT. Overall, pt is getting better, can perform modified exercise program including long walks and ellipital. May benefit from another leg strengthening activity. Physical Therapy Plan Frequency and Duration Frequency of Treatment 2x/Week Duration of Treatment 8 weeks Plan of Care Start Date 03/29/19 Plan of Care End Date 05/31/19 Therapeutic Interventions Therapeutic Interventions Balance Training,Home Exercise Program,Joint Mobilizations, Manual Therapy,Neuromuscular Re-education,Orthotic/ Prosthetic Management,Patient/ Caregiver Education,Self-Care/ Home Management,Soft Tissue Mobilization,Taping, Therapeutic Exercises Modalities Cold Pack/Ice Massage,Electric Stimulation,Hot Packs, Ultrasound Next Visit Focus/Plan Next Note Type Treatment Note Next Visit Plan Review any exercises. Consider adding plank and leg exercises.
--- NOTE | 2019-05-20 09:03 | PT.OTN ---
Current Diagnoses Sciatica, unspecified side (05/20/19) Physical Therapy Treatment Note PT-OP-A Visit Information Start: 03/29/19 07:21 Freq: Status: Active Protocol: Document 05/20/19 08:19 MB (Rec: 05/20/19 09:02 MB [id number]) Out-Patient Physical Therapy Visit Information Visit Information Visit Type Treatment Note Visit Note 25 visits Visit Start Time 08:19 Visit Stop Time 08:59 Total Visit Minutes 40 Visit Number Number of LABOUR MARKET ECONOMIST Visits 2 PT-OP-B Current Condition Start: 03/29/19 07:21 Freq: Status: Active Protocol: Document 03/29/19 08:15 MB (Rec: 03/29/19 08:55 MB [id number]) Current Condition History of Current Condition Onset Date 02/17/19 History of Current Condition Pt got off plane from [place] to [place] and she had left left pain in her buttock and leg. Pt reports that getting OOB and putting left leg on the floor makes her left leg hurt the worse. Pt reports intermittent pain and has trouble rating it. Driving time in the car, too much time sitting, and not walking increase her pain. She has had low pain to a couple of 8-9/ 10 mornings. She had a 10/10 morning and thought she was going to faint 3 weeks ago. That prompted her to see Dr. Elliott. Pt reports numbness left plantar fascia near met heads. She reports she feels like she has an extra sock in the area. It is pretty constant. She is sleeping on her back with a pillow under her knees and her pain is better. She has slippers next to the bed that she puts on in the morning. She has pain on her ischial tuberosity with sitting. Her assisted her with scooting in the bed, putting his hand under her left ischial tuberosity and this increased the pain. She feels like her gait is off and she is walking slowly. PT-OP-C Subjective Start: 03/29/19 07:21 Freq: Status: Active Protocol: Document 05/20/19 08:19 MB (Rec: 05/20/19 09:02 MB [id number]) OP-PT Subjective Patient Comments Patient Comments Pt feels that she is doing better. She was able to manage flying to [place] and back and drive back to [employer]. She only had stiffness the next day in the morning. She is getting on the elliptical 10 minutes at a time and then stretching and then getting back on it up to an hour. She took a 5-6 mile walk yesterday . She sat a while at night when having her friends over. She sat 3-4 hours. She felt a little sore in the morning. She feels good that she can just about identify what causes her sxs. PT-OP-J Posture/Palpation/Skin Start: 03/29/19 07:21 Freq: Status: Active Protocol: Document 03/29/19 08:15 MB (Rec: 03/29/19 15:11 MB [id number]) Posture Evaluation Comments Posture Comments Standing: Dowager's hump, decreased thoracic kyphosis, increased lumbar lordosis, right handed and right shoulder lower than the left, right iliac crest mildly higher than the left PT-OP-K Range of Motion Start: 03/29/19 07:21 Freq: Status: Active Protocol: Document 03/29/19 08:15 MB (Rec: 03/29/19 15:11 MB [id number]) Hip Goniometric Range of Motion Hip ROM Limitations Comments PT attempts SLR with pt supine and pt yelps in pain. Unable to SLR left greater than 30 deg. Pt reports buttocks and hamstring discomfort, not rated. Deferred left hip and knee MMT d/t her response and fear of pain PT-OP-M Strength Start: 03/29/19 07:21 Freq: Status: Active Protocol: Document 03/29/19 08:15 MB (Rec: 03/29/19 15:11 MB [id number]) Hip Strength Hip Manual Muscle Testing Left Comments Supine deferred d/t pt's response with SLR and fear of pain Right Flexion (L2) 4 Good Abduction 3 Fair Comments Supine Knee Strength Knee Manual Muscle Testing Left Comments Deferred d/t pt's response with SLR and fear of pain Right Flexion (S2) 5 Normal Extension (L3) 5 Normal Comments Supine Ankle/Foot Strength Ankle and Foot Manual Muscle Testing Left Dorsiflexion (L4) 5 Normal Plantarflexion (S1) 5 Normal Inversion 5 Normal Eversion (S1) 5 Normal Comments Great toe 4/5 Right Dorsiflexion (L4) 5 Normal Plantarflexion (S1) 5 Normal Inversion 5 Normal Eversion (S1) 5 Normal Comments Great toe 5/5 PT-OP-Q Treatments Start: 03/29/19 07:21 Freq: Status: Active Protocol: Document 05/20/19 08:19 MB (Rec: 05/20/19 09:02 MB [id number]) Therapeutic Exercises Supine Exercises Hip adductor stretch in hook lying Comments Hook lying, knees dropping out Hamstring, calf and AP stretch with strap Comments Performed this date and added to HEP, ed 30 sec Prone Exercises Child's Pose Comments Performed x 5 reps today Other Exercises Plank Comments Pt has discomfort in left leg when plank elbows and hands after 10 sec PT-OP-R Modalities Start: 03/29/19 07:21 Freq: Status: Active Protocol: Document 04/21/19 08:15 SP (Rec: 04/21/19 11:23 SP [id number]) Hot Pack/Cold Pack Treatment CP Location L SI, Glut Patient Position Hooklying Treatment Duration (minutes) 10 Patient Tolerance Fair Comments Does feel little better PT-OP-T Assessment and Plan Start: 03/29/19 07:21 Freq: Status: Active Protocol: Document 05/20/19 08:19 MB (Rec: 05/20/19 09:02 MB [id number]) Physical Therapy Assessment Goals 5 Market Development Director Goal (LTG) Pt will perform progressive HEP including postural, pelvic alignment, flexibility, strengthening and balance exercises with I by 05/31/19. LTG Duration 8 weeks 4 Impairment Weakness Market Development Director Goal (LTG) Pt will present with B hip flexion and abduction, knee flexion and extension to at least 5/5 with MMT by 05/31/19. LTG Duration 8 weeks 3 Impairment Decreased ROM Fdc Goal (LTG) Pt will present with B SLR to at least 80 deg without LB or leg pain by 05/31/19. LTG Duration 8 weeks 2 Impairment Pain Market Development Director Goal (LTG) Pt will report an overall 75% improvement in pain by 05/31/19 . LTG Duration 8 weeks 1 Impairment Oswestry reflects 52% impairment Fdc Goal (LTG) Pt will present with an improved Oswestry LBP scale score to reflect no more than 30% impairment by 05/31/19. LTG Duration 8 weeks Assessment Summary Assessment Added to exercises above: revised her HEP, written out and handouts. D/cd quadriped hip abduction and extension and standing adductor stretch. Pt's form is poor and she cannot remember exercises as instructed previously and she does not have handout. Added hook lying stretches to protect spine. Pt's plank form is weak and will need practice. She returns to Dr. Elliott today and will communicate progress with PT. Overall, pt is getting better, can perform modified exercise program including long walks and ellipital. May benefit from another leg strengthening activity. Physical Therapy Plan Frequency and Duration Frequency of Treatment 2x/Week Duration of Treatment 8 weeks Plan of Care Start Date 03/29/19 Plan of Care End Date 05/31/19 Therapeutic Interventions Therapeutic Interventions Balance Training,Home Exercise Program,Joint Mobilizations, Manual Therapy,Neuromuscular Re-education,Orthotic/ Prosthetic Management,Patient/ Caregiver Education,Self-Care/ Home Management,Soft Tissue Mobilization,Taping, Therapeutic Exercises Modalities Cold Pack/Ice Massage,Electric Stimulation,Hot Packs, Ultrasound Next Visit Focus/Plan Next Note Type Treatment Note Next Visit Plan Review any exercises. Consider adding plank and leg exercises.
--- NOTE | 2019-05-24 08:59 | PT.OTN ---
Current Diagnoses Sciatica, unspecified side (05/24/19) Physical Therapy Treatment Note PT-OP-A Visit Information Start: 03/29/19 07:21 Freq: Status: Active Protocol: Document 05/24/19 08:19 MB (Rec: 05/24/19 08:59 MB [id number]) Out-Patient Physical Therapy Visit Information Visit Information Visit Type Treatment Note Visit Note 25 visits Visit Start Time 08:19 Visit Stop Time 08:59 Total Visit Minutes 40 Visit Number Number of GOLF CADDIE Visits 2 PT-OP-B Current Condition Start: 03/29/19 07:21 Freq: Status: Active Protocol: Document 03/29/19 08:15 MB (Rec: 03/29/19 08:55 MB [id number]) Current Condition History of Current Condition Onset Date 02/17/19 History of Current Condition Pt got off plane from [place] to [place] and she had left left pain in her buttock and leg. Pt reports that getting OOB and putting left leg on the floor makes her left leg hurt the worse. Pt reports intermittent pain and has trouble rating it. Driving time in the car, too much time sitting, and not walking increase her pain. She has had low pain to a couple of 8-9/ 10 mornings. She had a 10/10 morning and thought she was going to faint 3 weeks ago. That prompted her to see Dr. Elliott. Pt reports numbness left plantar fascia near met heads. She reports she feels like she has an extra sock in the area. It is pretty constant. She is sleeping on her back with a pillow under her knees and her pain is better. She has slippers next to the bed that she puts on in the morning. She has pain on her ischial tuberosity with sitting. Her assisted her with scooting in the bed, putting his hand under her left ischial tuberosity and this increased the pain. She feels like her gait is off and she is walking slowly. PT-OP-C Subjective Start: 03/29/19 07:21 Freq: Status: Active Protocol: Document 05/24/19 08:19 MB (Rec: 05/24/19 08:59 MB [id number]) OP-PT Subjective Patient Comments Patient Comments Pt went to the doctor and states that he was pleased that she is making progress. She felt sore likely d/t hamstring stretch with martial art belt. PT-OP-J Posture/Palpation/Skin Start: 03/29/19 07:21 Freq: Status: Active Protocol: Document 03/29/19 08:15 MB (Rec: 03/29/19 15:11 MB [id number]) Posture Evaluation Comments Posture Comments Standing: Dowager's hump, decreased thoracic kyphosis, increased lumbar lordosis, right handed and right shoulder lower than the left, right iliac crest mildly higher than the left PT-OP-K Range of Motion Start: 03/29/19 07:21 Freq: Status: Active Protocol: Document 03/29/19 08:15 MB (Rec: 03/29/19 15:11 MB [id number]) Hip Goniometric Range of Motion Hip ROM Limitations Comments PT attempts SLR with pt supine and pt yelps in pain. Unable to SLR left greater than 30 deg. Pt reports buttocks and hamstring discomfort, not rated. Deferred left hip and knee MMT d/t her response and fear of pain PT-OP-M Strength Start: 03/29/19 07:21 Freq: Status: Active Protocol: Document 03/29/19 08:15 MB (Rec: 03/29/19 15:11 MB [id number]) Hip Strength Hip Manual Muscle Testing Left Comments Supine deferred d/t pt's response with SLR and fear of pain Right Flexion (L2) 4 Good Abduction 3 Fair Comments Supine Knee Strength Knee Manual Muscle Testing Left Comments Deferred d/t pt's response with SLR and fear of pain Right Flexion (S2) 5 Normal Extension (L3) 5 Normal Comments Supine Ankle/Foot Strength Ankle and Foot Manual Muscle Testing Left Dorsiflexion (L4) 5 Normal Plantarflexion (S1) 5 Normal Inversion 5 Normal Eversion (S1) 5 Normal Comments Great toe 4/5 Right Dorsiflexion (L4) 5 Normal Plantarflexion (S1) 5 Normal Inversion 5 Normal Eversion (S1) 5 Normal Comments Great toe 5/5 PT-OP-Q Treatments Start: 03/29/19 07:21 Freq: Status: Active Protocol: Document 05/24/19 08:19 MB (Rec: 05/24/19 08:59 MB [id number]) Therapeutic Exercises Supine Exercises Happy baby stretch Comments Performed this date after back tight Gentle hamstring stretch hook lying Comments Likely d/c hamstring with belt ; perform this gently Hip adductor stretch in hook lying Comments Performed today, feet together Prone Exercises Plank Comments Cues for glute recruitment and scap retraction; Child's pose after Standing Exercises Multifidi hold and heel raises with band on the side Comments Performed 10 reps each side Hip extension and abduction with level 1 band, core engagement Comments Performed again today, cues to keep feet apart/posture PT-OP-R Modalities Start: 03/29/19 07:21 Freq: Status: Active Protocol: Document 04/21/19 08:15 SP (Rec: 04/21/19 11:23 SP [id number]) Hot Pack/Cold Pack Treatment CP Location L SI, Glut Patient Position Hooklying Treatment Duration (minutes) 10 Patient Tolerance Fair Comments Does feel little better PT-OP-T Assessment and Plan Start: 03/29/19 07:21 Freq: Status: Active Protocol: Document 05/24/19 08:19 MB (Rec: 05/24/19 08:59 MB [id number]) Physical Therapy Assessment Goals 5 M1A1 Tank Crewman Goal (LTG) Pt will perform progressive HEP including postural, pelvic alignment, flexibility, strengthening and balance exercises with I by 05/31/19. LTG Duration 8 weeks 4 Impairment Weakness Assisted Goal (LTG) Pt will present with B hip flexion and abduction, knee flexion and extension to at least 5/5 with MMT by 05/31/19. LTG Duration 8 weeks 3 Impairment Decreased ROM M1A1 Tank Crewman Goal (LTG) Pt will present with B SLR to at least 80 deg without LB or leg pain by 05/31/19. LTG Duration 8 weeks 2 Impairment Pain Assisted Goal (LTG) Pt will report an overall 75% improvement in pain by 05/31/19 . LTG Duration 8 weeks 1 Impairment Oswestry reflects 52% impairment Assisted Goal (LTG) Pt will present with an improved Oswestry LBP scale score to reflect no more than 30% impairment by 05/31/19. LTG Duration 8 weeks Assessment Summary Assessment Progressed all strengthening this date and anticipate d/c next treatment date. Physical Therapy Plan Frequency and Duration Frequency of Treatment 2x/Week Duration of Treatment 8 weeks Plan of Care Start Date 03/29/19 Plan of Care End Date 05/31/19 Therapeutic Interventions Therapeutic Interventions Balance Training,Home Exercise Program,Joint Mobilizations, Manual Therapy,Neuromuscular Re-education,Orthotic/ Prosthetic Management,Patient/ Caregiver Education,Self-Care/ Home Management,Soft Tissue Mobilization,Taping, Therapeutic Exercises Modalities Cold Pack/Ice Massage,Electric Stimulation,Hot Packs, Ultrasound Next Visit Focus/Plan Next Note Type Discharge Summary
--- NOTE | 2019-05-26 09:00 | PT.OTN ---
Current Diagnoses Sciatica, unspecified side (05/26/19) Physical Therapy Treatment Note PT-OP-A Visit Information Start: 03/29/19 07:21 Freq: Status: Active Protocol: Document 05/26/19 08:19 MB (Rec: 05/26/19 08:59 MB [id number]) Out-Patient Physical Therapy Visit Information Visit Information Visit Type Treatment Note Visit Note 25 visits Visit Start Time 08:19 Visit Stop Time 08:59 Total Visit Minutes 40 Visit Number Number of [employer] TEACHERS Visits 2 PT-OP-B Current Condition Start: 03/29/19 07:21 Freq: Status: Active Protocol: Document 03/29/19 08:15 MB (Rec: 03/29/19 08:55 MB [id number]) Current Condition History of Current Condition Onset Date 02/17/19 History of Current Condition Pt got off plane from [place] to [place] and she had left left pain in her buttock and leg. Pt reports that getting OOB and putting left leg on the floor makes her left leg hurt the worse. Pt reports intermittent pain and has trouble rating it. Driving time in the car, too much time sitting, and not walking increase her pain. She has had low pain to a couple of 8-9/ 10 mornings. She had a 10/10 morning and thought she was going to faint 3 weeks ago. That prompted her to see Dr. Elliott. Pt reports numbness left plantar fascia near met heads. She reports she feels like she has an extra sock in the area. It is pretty constant. She is sleeping on her back with a pillow under her knees and her pain is better. She has slippers next to the bed that she puts on in the morning. She has pain on her ischial tuberosity with sitting. Her assisted her with scooting in the bed, putting his hand under her left ischial tuberosity and this increased the pain. She feels like her gait is off and she is walking slowly. PT-OP-C Subjective Start: 03/29/19 07:21 Freq: Status: Active Protocol: Document 05/26/19 08:19 MB (Rec: 05/26/19 09:00 MB [id number]) OP-PT Subjective Patient Comments Patient Comments Pt reports she is at least 75% better. She would like to review all exercises. PT-OP-J Posture/Palpation/Skin Start: 03/29/19 07:21 Freq: Status: Active Protocol: Document 03/29/19 08:15 MB (Rec: 03/29/19 15:11 MB [id number]) Posture Evaluation Comments Posture Comments Standing: Dowager's hump, decreased thoracic kyphosis, increased lumbar lordosis, right handed and right shoulder lower than the left, right iliac crest mildly higher than the left PT-OP-K Range of Motion Start: 03/29/19 07:21 Freq: Status: Active Protocol: Document 03/29/19 08:15 MB (Rec: 03/29/19 15:11 MB [id number]) Hip Goniometric Range of Motion Hip ROM Limitations Comments PT attempts SLR with pt supine and pt yelps in pain. Unable to SLR left greater than 30 deg. Pt reports buttocks and hamstring discomfort, not rated. Deferred left hip and knee MMT d/t her response and fear of pain PT-OP-M Strength Start: 03/29/19 07:21 Freq: Status: Active Protocol: Document 03/29/19 08:15 MB (Rec: 03/29/19 15:11 MB [id number]) Hip Strength Hip Manual Muscle Testing Left Comments Supine deferred d/t pt's response with SLR and fear of pain Right Flexion (L2) 4 Good Abduction 3 Fair Comments Supine Knee Strength Knee Manual Muscle Testing Left Comments Deferred d/t pt's response with SLR and fear of pain Right Flexion (S2) 5 Normal Extension (L3) 5 Normal Comments Supine Ankle/Foot Strength Ankle and Foot Manual Muscle Testing Left Dorsiflexion (L4) 5 Normal Plantarflexion (S1) 5 Normal Inversion 5 Normal Eversion (S1) 5 Normal Comments Great toe 4/5 Right Dorsiflexion (L4) 5 Normal Plantarflexion (S1) 5 Normal Inversion 5 Normal Eversion (S1) 5 Normal Comments Great toe 5/5 PT-OP-Q Treatments Start: 03/29/19 07:21 Freq: Status: Active Protocol: Document 05/26/19 08:19 MB (Rec: 05/26/19 08:59 MB [id number]) Therapeutic Exercises Supine Exercises Hip adductor stretch in hook lying Comments Performed today Ab heel slide Comments Performed today Core progression, abdominal drawing in Comments Performed today, added mini march Daniel stretch Comments Performed B, opposite thigh up Diaphragmatic breathing Comments Performed today Pelvic realigment exercises Comments Performed today Prone Exercises Plank Comments Performed today, Child's Pose after Child's Pose Comments Performed today after Prone Lying Prone lying Comments Performed today and then Child 's Pose Standing Exercises Multifidi hold and heel raises with band on the side Comments Performed today, 5 reps each side Hip extension and abduction with level 1 band, core engagement Comments Performed this date, 5 reps each leg PT-OP-R Modalities Start: 03/29/19 07:21 Freq: Status: Active Protocol: Document 04/21/19 08:15 SP (Rec: 04/21/19 11:23 SP [id number]) Hot Pack/Cold Pack Treatment CP Location L SI, Glut Patient Position Hooklying Treatment Duration (minutes) 10 Patient Tolerance Fair Comments Does feel little better PT-OP-T Assessment and Plan Start: 03/29/19 07:21 Freq: Status: Active Protocol: Document 05/26/19 08:19 MB (Rec: 05/26/19 08:59 MB [id number]) Physical Therapy Assessment Goals 5 Mcc Goal (LTG) Pt will perform progressive HEP including postural, pelvic alignment, flexibility, strengthening and balance exercises with I by 05/31/19. 05/26/2019: Pt is performing HEP with I LTG Duration 8 weeks 4 Impairment Weakness Mcc Goal (LTG) Pt will present with B hip flexion and abduction, knee flexion and extension to at least 5/5 with MMT by 05/31/19. 05/26/2019: The above 5/5 except right hip abduction LTG Duration 8 weeks 3 Impairment Decreased ROM Ore Crushing Dust Collector Goal (LTG) Pt will present with B SLR to at least 80 deg without LB or leg pain by 05/31/19. 05/26/2019: Right 80 deg and Left 70 deg and stretch feeling LTG Duration 8 weeks 2 Impairment Pain Mcc Goal (LTG) Pt will report an overall 75% improvement in pain by 05/31/19 . 05/26/2019: Pt reports at least a 75% improvement in pain since starting PT LTG Duration 8 weeks 1 Impairment Oswestry reflects 52% impairment Ore Crushing Dust Collector Goal (LTG) Pt will present with an improved Oswestry LBP scale score to reflect no more than 30% impairment by 05/31/19. 05/26/2019: Oswestry reveals 22% impairment LTG Duration 8 weeks Assessment Summary Assessment Pt has met the following PT goals since starting PT: performance of HEP, reports of improvement in pain, Oswestry LBP scale score and L hip flexion, B abduction, B knee flexion and extension strength 5/5. She con't with some weakness with right hip abduction. Her SLR PROM is improved B. She has maximized PT potential and will d/c PT. Physical Therapy Plan Frequency and Duration Frequency of Treatment 2x/Week Duration of Treatment 8 weeks Plan of Care Start Date 03/29/19 Plan of Care End Date 05/31/19 Therapeutic Interventions Therapeutic Interventions Balance Training,Home Exercise Program,Joint Mobilizations, Manual Therapy,Neuromuscular Re-education,Orthotic/ Prosthetic Management,Patient/ Caregiver Education,Self-Care/ Home Management,Soft Tissue Mobilization,Taping, Therapeutic Exercises Modalities Cold Pack/Ice Massage,Electric Stimulation,Hot Packs, Ultrasound
== END 2019-06-03 11:11 ==
LOC: PHYS 08:15
PROVIDERS: PCP Student in an Organized Health Care Education/Training Program; Visit Provider Student in an Organized Health Care Education/Training Program
DX: M54.30 Sciatica, unspecified side (principal)
CPT/HCPCS: 97110; 97140; 97161; 97535

== ENCOUNTER → 2019-07-05 14:09 | Outpatient (CLI) | payer OTHER, SELFPAY ==
--- NOTE | 2019-07-05 14:11 | DI.RAD.S_ITS ---
PROCEDURE: XR LUMBAR SPINE 2-3V INDICATIONS: back pain TECHNIQUE: 3 views of the lumbar spine were acquired. COMPARISON: None. FINDINGS: Bones: No fracture or focal osseous destruction. Multilevel degenerative endplate sclerosis and spurring. Diffuse facet arthropathy. Trace retrolisthesis of L3 on L4. Grade 1 anterolisthesis of L5 on S1. Mild bilateral sacroiliac spurring and sclerosis. Minimal levocurvature centered at L2. Hypoplastic S1-S2 disc space. Moderate narrowing of the L1-L2 disc space. There is diffuse mild narrowing of the remaining lumbar disc spaces. Anterior spinal calcification seen at the level of T11-T12, L1-L2, nonspecific. Soft tissues: Overlying bowel gas pattern is normal. No suspicious soft tissue calcifications. Aortic vascular calcifications. IMPRESSION: Mild-moderate diffuse lumbar spondylosis and facet arthropathy Multilevel spondylolisthesis as above. Minimal levocurvature Incidentally noted transitional lumbosacral vertebra. Please see montage image for further clarification of the spinal segmental level numbering scheme used in this report. Dictated by: Jean-Paul Rosales M.D. on 07/05/2019 at 15:38 Approved by: Jean-Paul Rosales M.D. on 07/05/2019 at 15:43
== END ==
PROVIDERS: PCP Student in an Organized Health Care Education/Training Program; Referring Provider Student in an Organized Health Care Education/Training Program; Visit Provider Student in an Organized Health Care Education/Training Program
DX: M54.30 Sciatica, unspecified side (principal); M54.5 Low back pain; M47.816 Spondylosis without myelopathy or radiculopathy, lumbar region; M43.16 Spondylolisthesis, lumbar region
CPT/HCPCS: 72100

== ENCOUNTER → 2019-07-13 18:48 | Outpatient (CLI) | payer OTHER, SELFPAY ==
--- NOTE | 2019-07-13 18:51 | DI.MRI.S_ITS ---
PROCEDURE: MR LUMBAR SPINE WO CON INDICATIONS: Left L5 radiculopathy TECHNIQUE: Noncontrast sagittal T1 spin echo and T2 fast echo, sagittal STIR, axial T1 and T2 fast spin echo through the lumbar spine. In cases with scoliosis, additional coronal T2 fast spin echo may be performed. COMPARISON: None. FINDINGS: Image quality: Excellent. Alignment and Curvature: There is normal bony alignment except at L5-S1 where there is mild grade 1 anterolisthesis of L5 due to ligamentous laxity from degenerative disc disease and especially prominent facet osteoarthritis at this level. Bone Marrow: Marrow is of normal overall signal. No acute vertebral body compression fractures. Spinal Cord: Conus medullaris terminates at the L1 level. Visualized cord demonstrates normal signal and size. Paraspinous Soft Tissues: No paravertebral masses. L1-L2: Mild to moderate degenerative disc height reduction and there is a small posterior broad-based disc bulge which does not produce significant spinal stenosis. Mild facet osteoarthritis, without foraminal stenosis.. L2-L3: Mild degenerative disc height reduction, and facet osteoarthritis, but no spinal or foraminal stenosis. L3-L4: The degenerative disc disease is minimal, facet osteoarthritis is mild grade there is slight narrowing of the neural foramen but without nerve root impingement. L4-L5: Degenerative disc disease is mild. Facet osteoarthritis is moderate and greater on the left than the right. This results in asymmetric foraminal stenosis, mild to moderate on the left and mild on the right. Ligamentum flavum hypertrophy is present, producing further mild narrowing of the spinal canal but without significant encroachment on nerve roots within the thecal sac. L5-S1: The degenerative disc disease at this level is relatively mild but facet osteoarthritis is quite severe. Foraminal stenosis results, greater on the left than the right, with likelihood of significant asymmetric impingement on the course of the left L5 nerve root as result. Slight grade 1 anterolisthesis of L5 on S1 is associated. There is a moderate degree of spinal stenosis at this level. IMPRESSION: 1. No disc herniation seen. 2. The degenerative disc disease present is relatively mild along the lumbosacral line but facet osteoarthritis is more prominent and greater on the left than the right at L4-5 and especially L5-S1. Significant asymmetric left-sided nerve root impingement at these 2 levels would be expected, especially at L5-S1 where the left L5 nerve root appears significantly encroached upon by facet hyperostosis. 3. Within the paravertebral soft tissues no abnormality is seen.. Dictated by: Edgar Varma M.D. on 07/14/2019 at 16:21 Approved by: Edgar Varma M.D. on 07/14/2019 at 16:29
== END ==
PROVIDERS: PCP Student in an Organized Health Care Education/Training Program; Referring Provider Registered Nurse; Visit Provider Registered Nurse
DX: M48.061 Spinal stenosis, lumbar region without neurogenic claudication (principal); M48.07 Spinal stenosis, lumbosacral region; M51.16 Intervertebral disc disorders with radiculopathy, lumbar region; M51.17 Intervertebral disc disorders with radiculopathy, lumbosacral region; M47.26 Other spondylosis with radiculopathy, lumbar region; M47.27 Other spondylosis with radiculopathy, lumbosacral region
CPT/HCPCS: 72148

== ENCOUNTER 2019-07-22 07:48 | Outpatient (CLI) | payer OTHER, SELFPAY ==
[2019-07-22] VITALS (10 sets, daily range): BP systolic 108–134; BP diastolic 59–74; PULSE 62–87; RESP 13–18; TEMP 36.4; O2SAT 98–100
--- NOTE | 2019-07-22 | DI.RAD.S_ITS ---
PROCEDURE: PAIN L/S TRANSFORAMINAL INJECT INDICATIONS: SPONDYLOSIS FINDINGS: Fluoroscopic spot filming was performed to verify placement of spinal needles at the L5-S1 level(s), as labeled on the films. Appropriate location(s) of the needle tip(s) was confirmed by injection of iodinated contrast. Dictated by: Jean-Paul Rosales M.D. on 07/22/2019 at 12:06 Approved by: Jean-Paul Rosales M.D. on 07/22/2019 at 12:08
[2019-07-22] MEDS: MIDAZOLAM 5 MG/5 ML VIAL IV (09:43)
[2019-07-22] MEDS: IOPAMIDOL 15 ML VIAL 3 ML INJ (09:49)
[2019-07-22] MEDS: BETAMETHASONE 30 MG/5 ML MDV 6 MG INJ (09:49)
[2019-07-22] MEDS: BUPIVACAINE 0.25% (PF) VIAL 2 ML INJ (09:49)
[2019-07-22] MEDS: DEXAMETHASONE 10 MG/ML VIAL 20 MG INJ (09:50)
--- NOTE | 2019-07-22 09:56 | PC.NURSE ---
ASSISTING PT OFF TABLE AND TRANSPORTING PT OFF TABLE IN STABLE CONDITION. PASSING RN CARE OF PT OFF TO CLIFF Cooney RN.
--- NOTE | 2019-07-22 10:03 | PM.PROC.1 ---
Procedures Date/Time Date of procedure: 07/22/19 Time of procedure: 10:03 General Procedure description: PREOP DIAGNOSIS 1. FORMAINAL STENOSIS WITH LE SYMPTOMS POST OP DIAGNOSIS 1. FORMAINAL STENOSIS WITH LE SYMPTOMS PROCEDURES 1. FLUOROSCOPICALLY GUIDED CONTRAST CONTROLLED TRANSFORAMINAL EPIDURAL STEROID INJECTION - Left L5/S1 PHYSICIAN: Noel Reid DO INDICATIONS: Ly is referred by Dr. Elliott for treatment of Foraminal Stenosis with Left LE Symptoms FINDINGS Foraminal Nerve Root Compression secondary to disc disease and facet hypertrophy DESCRIPTION OF PROCEDURE: Following review of allergy and review of potential side effects and complications, including, but not necessarily limited to, infection, allergic reaction, local tissue breakdown, stroke, temporary or permanent nerve injury, paralysis, and possible , the patient indicated that the patient understood and agreed to proceed. An informed consent document was signed by the patient, witnessed by a nurse, and placed in the patient's chart. Additionally, other treatment options including medications, modalities, and physical therapy were reviewed with the patient. After review of previous anaesthesic history and IV conscious sedation the patient was deemed safe to proceed with todays procedure with IV conscious sedation as ASA class II designation. Safety time-out was performed to confirm patient ID, procedure to be performed and site of procedure. IV sedation was accomplished with 2mg of Versed was administered by the RN after DO order, titrated to patient comfort during the course of the procedure while the patient remained responsive to all verbal commands In the prone position following sterile prep and drape of the lumbar region, the Left L5/S1 posterior neuroforamen was identified fluoroscopically. The skin was anesthetized via a 25-gauge 1.5-inch needle with 1% lidocaine solution. At this point, a 25-gauge 3.5-inch spinal needle was atraumatically introduced and advanced under fluoroscopic guidance through the posterior Left L5/S1 neuroforamen to approximately the anterior aspect of the canal. Depth was confirmed on lateral view. Following negative aspiration, injection of approximately 1.5 cc of Isovue 200 under live fluoroscopy in the AP view confirmed excellent flow along the nerve root, into the epidural space without vascular or intrathecal uptake observed Radiological data, including multiple fluoroscopic views of the lumbosacral spine, reveal a spinal needle at the Left L5/S1 posterior neuroforamen. Subsequent views show flow of contrast material flowing superiorly and inferiorly along the nerve root confirming epidural flow. Subsequently, a test dose of 1.5cc of 0.25% marcaine solution was administered and patient was observed for two minutes for signs or symptoms of complications, including abdominal pain, shortness of breath, bilateral upper or lower extremity weakness, nausea and vomiting, prior to steroid injection. At this point, a total of 3cc or 20mg of dexamethasone and 6mg of betamethasone was injected without incident. The procedure tolerated the procedure well without signs or symptoms of complications prior to transfer to the recovery area continued monitoring without incident. The patient was then transferred to the recovery area where they were observed for an appropriate time after the injection. The patient reported a VAS score of 7 prior to the procedure and a post-procedure VAS of 0. Total Fluoroscopy Time: 8 seconds Total Conscious Sedation Time: 24min POST OP INSTRUCTIONS The patient was provided a Pain Log to continue to record their response to the target-specific procedure prior to follow-up visit with their referring physician. Additionally, specific post-injection care instructions and a contact number to our office were provided if concerns arise regarding possible complications associated with the procedure are suspected. Noel Reid DO Complications: none
== END 2019-07-22 10:54 ==
LOC: RAD 07:49
PROVIDERS: PCP Student in an Organized Health Care Education/Training Program; Referring Provider Physical Medicine & Rehabilitation; Visit Provider Physical Medicine & Rehabilitation
DX: M51.17 Intervertebral disc disorders with radiculopathy, lumbosacral region (principal); M48.07 Spinal stenosis, lumbosacral region
CPT/HCPCS: 64483; 99152; J0702; J1100; J2250; J3010

== ENCOUNTER → 2019-12-25 09:39 | Outpatient (CLI) | payer OTHER, SELFPAY ==
[2019-12-26 16:56] LABS: COVID19 Sendout Not Detected (Not Detect)
== END ==
PROVIDERS: PCP Student in an Organized Health Care Education/Training Program; Visit Provider Physician Assistant
DX: Z11.59 Encounter for screening for other viral diseases (principal)
CPT/HCPCS: 87635

== ENCOUNTER 2019-12-28 13:08 | Outpatient (CLI) | payer OTHER, SELFPAY ==
[2019-12-28] VITALS (9 sets, daily range): BP systolic 104–118; BP diastolic 69–79; PULSE 64–81; RESP 15–16; TEMP 36.2; O2SAT 95–100
--- NOTE | 2019-12-28 13:09 | DI.RAD.S_ITS ---
PROCEDURE: PAIN L/SI FACET INJ/BLK 1STL INDICATIONS: SPONDYLOSIS COMPARISON: None. FINDINGS: Fluoroscopic spot filming was performed to verify placement of spinal needles at the left L4-5 and L5-S1 level(s), as labeled on the films. Appropriate location(s) of the needle tip(s) was confirmed by injection of iodinated contrast. IMPRESSION: Intraprocedural examination within normal limits. Dictated by: Shakeel Burnett M.D. on 12/29/2019 at 8:46 Approved by: Shakeel Burnett M.D. on 12/29/2019 at 8:47
--- NOTE | 2019-12-28 13:38 | PC.NURSE ---
Ly is A&O able to make needs known. rates pain 4/10 and radiates down the left leg. Green pain log with post instruction reviewed. Has no other questions or concerns at this time.
[2019-12-28] MEDS: MIDAZOLAM 5 MG/5 ML VIAL IV (13:58)
[2019-12-28] MEDS: fentaNYL 100 MCG/2 ML INJ 50 MCG IV (13:58)
[2019-12-28] MEDS: IOPAMIDOL 15 ML VIAL 3 ML INJ (14:04)
[2019-12-28] MEDS: BUPIVACAINE 0.5% (PF) VIAL 2 ML INJ (14:04)
[2019-12-28] MEDS: BETAMETHASONE 30 MG/5 ML MDV 12 MG INJ (14:04)
--- NOTE | 2019-12-28 14:16 | P.PCN_ITS ---
Date/Time/Diagnoses Date of procedure: 12/28/19 Time of procedure: 14:16 Pre-procedure diagnosis: 1. FACET ARTHROPATHY, 2. AXIAL LBP, 3. MULTILEVEL DDD Post-procedure diagnosis: same Procedure Notes Procedure: 1. FLUOROSCOPICALLY GUIDED CONTRAST CONTROLLED FACET JOINT INJECTIONS LEFT L4/5, L5/S1 Indications: Ly is referred by for treatment of Axial LBP Physician: Noel Reid Total Fluoroscopy time (seconds): 12 Total sedation minutes: 15 Complications: none Procedure in detail & Post-procedure care: FINDINGS Multilevel Facet Arthropathy with Clinically significant axial LBP DESCRIPTION OF PROCEDURE Fluoroscopically guided, contrast-controlled left L4/5, L5/S1 facet joint injections. Following review of allergy and review of potential side effects and complications, including, but not necessarily limited to, infection, allergic reaction, local tissue breakdown, stroke, temporary or permanent nerve injury, paralysis, and possible , the patient indicated that the patient understood and agreed to proceed. An informed consent document was signed by the patient, witnessed by a nurse, and placed in the patient's chart. Additionally, other treatment options including medications, modalities, and physical therapy were reviewed with the patient. After review of previous anaesthesic history and IV conscious sedation the patient was deemed safe to proceed with today?s procedure with IV conscious sedation as ASA class II designation. Safety time-out was performed to confirm patient ID, procedure to be performed and site of procedure. IV sedation was accomplished with a combination of 2mg of Versed and 50mcg of Fentanylwas administered by the RN after DO order, titrated to patient comfort during the course of the procedure while the patient remained responsive to all verbal commands. In the prone position, following sterile prep and drape of the lumbar region, the posterior aspect of the left L4/5, L5/S1 facet joints were identified fluoroscopically. The skin was anesthetized via a 25-gauge 1.5-inch needle with 1% lidocaine solution into the corresponding facet joints. At this point, a 22- gauge 3.5-inch spinal needle was atraumatically introduced and advanced under fluoroscopic guidance into the corresponding facet joints. Following negative aspiration, injections of approximately 0.2-cc of Isovue 200 confirmed intera rticular placement without vascular uptake. Radiological data, including multiple fluoroscopic views of the lumbosacral spine, reveal a spinal needle at the left L4/5, L5/S1 facet joints. Subsequent views show flow of contrast material both superiorly and inferiorly within the joint space without vascular or intrathecal uptake. At this point, a total of 0.5 cc including a mixture of 0.25cc Marcaine and 0.25cc betamethasone was injected without complication into each of the corresponding facet joints. The procedure tolerated the procedure well without signs or symptoms of complications prior to transfer to the recovery area continued monitoring without incident. The patient was then transferred to the recovery area where they were observed for an appropriate period of time after the injection. The patient reported a VAS score of 7 prior to the procedure and a post-procedure VAS of 0. POST OP INSTRUCTIONS The patient was provided a Pain Log to continue to record their response to the target-specific procedure prior to follow-up visit with their referring physician. Additionally, specific post-injection care instructions and a contact number to our office were provided if concerns arise regarding possible complications associated with the procedure are suspected.
--- NOTE | 2019-12-28 14:45 | PC.NURSE ---
Patient is steady on her feet. Assisted via w/c to spouses car. Has no questions or concerns at this time.
--- NOTE | 2019-12-28 16:09 | PC.NURSE ---
Tolerated procedure well. Sedation administered by MALOLRY Romero. All other meds given by Dr Reid. Vitals stable during and immediately post procedure. Report given to MLALORY Hsu for post procedure recovery.
== END 2019-12-28 14:42 | disposition home or self-care (01) ==
LOC: RAD 13:08
PROVIDERS: PCP Student in an Organized Health Care Education/Training Program; Referring Provider Student in an Organized Health Care Education/Training Program; Visit Provider Physical Medicine & Rehabilitation
DX: M47.816 Spondylosis without myelopathy or radiculopathy, lumbar region (principal); M47.817 Spondylosis without myelopathy or radiculopathy, lumbosacral region; M54.5 Low back pain; M51.36 Other intervertebral disc degeneration, lumbar region; M51.37 Other intervertebral disc degeneration, lumbosacral region
CPT/HCPCS: 64493; 64494; 99152; J0702; J2250; J3010

== ENCOUNTER → 2020-06-21 11:24 | Outpatient (CLI) | payer OTHER, SELFPAY ==
[2020-06-21 12:56] LABS: Blood Urea Nitrogen 18 mg/dL (7-17); Calcium 9.5 mg/dL (8.4-10.2); Carbon Dioxide 32 mmol/L (22-32); Chloride 102 mmol/L (98-107); Estimated Glomerular Filt Rate > 60.0 mL/min (>60); Glucose 80 mg/dL (80-110); HEMOLYSIS < 15 (0-50); Potassium 4.2 mmol/L (3.4-5.1); Sodium 137 mmol/L (137-145)
== END ==
PROVIDERS: PCP Student in an Organized Health Care Education/Training Program; Referring Provider Student in an Organized Health Care Education/Training Program; Visit Provider Student in an Organized Health Care Education/Training Program
DX: Z79.1 Long term (current) use of non-steroidal anti-inflammatories (NSAID) (principal)
CPT/HCPCS: 36415; 80048

== ENCOUNTER → 2020-07-26 09:52 | Outpatient (CLI) | payer OTHER, SELFPAY | PROVIDERS: PCP Student in an Organized Health Care Education/Training Program; Referring Provider Registered Nurse; Visit Provider Registered Nurse | DX: M85.852 Other specified disorders of bone density and structure, left thigh (principal); Z78.0 Asymptomatic menopausal state | CPT/HCPCS: 77080 ==

== ENCOUNTER → 2021-01-01 11:10 | Outpatient (CLI) | payer OTHER, SELFPAY ==
--- NOTE | 2021-01-01 | DI.MG.S_ITS ---
BILATERAL DIGITAL SCREENING MAMMOGRAM 3D/2D WITH CAD: 01/01/2021 CLINICAL: Routine screening. Comparison is made to exams dated: 12/31/2018 mammogram - [facility], 07/22/2016 mammogram, and 07/19/2015 mammogram - [facility]. The tissue of both breasts is heterogeneously dense. This may lower the sensitivity of mammography. Current study was also evaluated with a Computer Aided Detection (CAD) system. No significant masses, calcifications, or other findings are seen in either breast. There has been no significant interval change. IMPRESSION: NEGATIVE There is no mammographic evidence of malignancy. A 1 year screening mammogram is recommended. This exam was interpreted at Station ID: [id number]. NOTE: For mammograms, a report in lay terms will be sent to the patient. Approximately 15% of breast malignancies will not be visualized mammographically. In the management of a palpable breast mass, a negative mammogram must not discourage biopsy of a clinically suspicious lesion. Electronically Signed By: Narciso kim/aleah:01/01/2021 12:09:59 copy to: JEF RITTER letter sent: Normal Exam ACR BI-RADS Category 1: Negative 3341F
== END ==
PROVIDERS: PCP Student in an Organized Health Care Education/Training Program; Referring Provider Student in an Organized Health Care Education/Training Program; Visit Provider Student in an Organized Health Care Education/Training Program
DX: Z12.31 Encounter for screening mammogram for malignant neoplasm of breast (principal)
CPT/HCPCS: 77063; 77067

== ENCOUNTER → 2021-08-30 10:20 | Outpatient (CLI) | payer MEDICARE, OTHER, SELFPAY ==
[2021-08-30 12:17] LABS: Add Manual Diff / Slide Review NO; Basophils Absolute Auto 0 /uL (0-100); Basophils Percent Auto 0.6 % (0-2); Eosinophils Absolute Auto 200 /uL (0-450); Eosinophils Percent Auto 3.4 % (2-4); Hematocrit 40.9 % (36-46); Hemoglobin 13.6 g/dL (12.0-16.0); Lymphocytes Absolute Auto 2100 /uL (1100-4500); Mean Corpuscular HGB Conc 33.3 % (30-36); Monocytes Absolute Auto 500 /uL (0-900); Monocytes Percent Auto 8.7 % (3-14); Neutrophils Absolute Auto 2600 /uL (1500-7000); Neutrophils Percent Auto 48.3 % (50-75); Platelet Count 225 X10^3/uL (150-400); White Blood Cell Count 5.4 X10^3/uL (4.5-11.0)
[2021-08-30 13:12] LABS: Alanine Aminotransferase 20 IU/L (<35); Albumin 4.5 g/dL (3.5-5.0); Albumin Globulin Ratio 1.6 (1.0-2.8); Alkaline Phosphatase 59 U/L (38-126); Aspartate Aminotransferase 22 IU/L (14-36); BUN Creatinine Ratio 19.4 (6-22); Bilirubin Total 0.3 mg/dL (0.2-1.3); Blood Urea Nitrogen 13 mg/dL (7-17); Calcium 9.4 mg/dL (8.4-10.2); Carbon Dioxide 33 mmol/L (22-32); Chloride 102 mmol/L (98-107); Cholesterol 248 mg/dL (140-199); Estimated Glomerular Filt Rate > 60 mL/min (>60); Globulin 2.9 g/dL (1.7-4.1); Glucose 87 mg/dL (80-110); HDL Cholesterol 80 mg/dL (40-60); HEMOLYSIS < 15 (0-50); LDL Cholesterol Calculated 133 mg/dL (<100); Potassium 4.1 mmol/L (3.4-5.1); Sodium 141 mmol/L (137-145); Total Protein 7.4 g/dL (6.3-8.2); Triglycerides 176 mg/dL (35-150)
[2021-08-30 13:47] LABS: TSH w/ Reflex to FT4 0.68 uIU/mL (0.47-4.68)
== END ==
PROVIDERS: PCP Internal Medicine; Referring Provider Internal Medicine; Visit Provider Internal Medicine
DX: E78.2 Mixed hyperlipidemia (principal); R07.9 Chest pain, unspecified
CPT/HCPCS: 36415; 80053; 80061; 84443; 85025

== ENCOUNTER → 2022-01-15 08:00 | Outpatient (CLI) | payer MEDICARE, OTHER, SELFPAY ==
--- NOTE | 2022-01-15 | DI.MG.S_ITS ---
BILATERAL DIGITAL SCREENING MAMMOGRAM 3D/2D WITH CAD: 01/15/2022 CLINICAL: Routine screening. Comparison is made to exams dated: 01/01/2021 mammogram, 12/31/2018 mammogram - [facility], and 07/22/2016 mammogram - [facility]. Both breasts are heterogeneously dense, which may obscure small masses (category c / 51-75% glandular tissue). Current study was also evaluated with a Computer Aided Detection (CAD) system. No significant masses, calcifications, or other findings are seen in either breast. There has been no significant interval change. IMPRESSION: NEGATIVE There is no mammographic evidence of malignancy. A 1 year screening mammogram is recommended. Based on the Tyrer Cuzick model (a risk assessment model) the patient's lifetime risk is 12.9% and her 10 year risk is 6.3%. According to the ACR, ACS, and NCCN guidelines, an annual breast MRI exam along with mammogram is recommended if the patient's lifetime risk is 20% or greater. This exam was interpreted at Station ID: [id number]. NOTE: For mammograms, a report in lay terms will be sent to the patient. Approximately 15% of breast malignancies will not be visualized mammographically. In the management of a palpable breast mass, a negative mammogram must not discourage biopsy of a clinically suspicious lesion. Electronically Signed By: Jenae atwood/aleah:01/15/2022 11:52:49 copy to: JEF RITTER letter sent: Normal Exam ACR BI-RADS Category 1: Negative 3341F
== END ==
PROVIDERS: PCP Internal Medicine; Referring Provider Internal Medicine; Visit Provider Internal Medicine
DX: Z12.31 Encounter for screening mammogram for malignant neoplasm of breast (principal)
CPT/HCPCS: 77063; 77067

== ENCOUNTER → 2022-07-29 12:17 | Outpatient (CLI) | payer MEDICARE, OTHER, SELFPAY ==
--- NOTE | 2022-07-29 11:45 | DI.DEXA.S_ITS ---
Indication: osteopenia; Referring Provider: MATTHEW DAWN Study: Bone densitometry was performed. Exam Date: July 29, 2022 Accession number: [id number] Bone Density: Region BMD T-score Z-score Classification AP Spine(L1-L4) 0.964 -0.8 1.1 Normal Femoral Neck (Left) 0.569 -2.5 -0.9 Osteoporosis Total Hip (Left) 0.780 -1.3 0.0 Osteopenia Femoral Neck (Right) 0.601 -2.2 -0.7 Osteopenia Total Hip (Right) 0.840 -0.8 0.4 Normal Total Hip Mean 0.810 -1.1 0.2 Osteopenia World Health Organization criteria for BMD impression classify patients as: Normal (T-score at or above -1.0), Osteopenia (T-score between -1.0 and -2.5), or Osteoporosis (T-score at or below -2.5). 10-year Fracture Risk: FRAX not reported because: Some T-score for Spine Total or Hip Total or Femoral Neck at or below -2.5 Previous Exams: -- Region Exam Age BMD T-score BMD Change BMD Change Date g/cm2 vs Baseline vs Previous -- AP Spine (L1-L4) 07/29/2022 67 0.964 -0.8 -0.010 (-1.1%)# -0.010 (-1.1%)# 07/26/2020 65 0.975 -0.7 Total Hip(Left) 07/29/2022 67 0.780 -1.3 -0.001 (-0.2%)# -0.001 (-0.2%)# 07/26/2020 65 0.782 -1.3 Total Hip(Right) 07/29/2022 67 0.840 -0.8 -0.019 (-2.3%)# -0.019 (-2.3%)# 07/26/2020 65 0.859 -0.7 -- *Denotes significance at 95% confidence level, LSC for AP Spine = 0.022 g/cm2, LSC for Total Hip = 0.027 g/cm2 # Denotes dissimilar scan types or analysis methods Impression: The patient has osteoporosis, based on the Left Femoral Neck T-score. No significant bone loss was observed. Discussion: INCREASED RISK OF FRACTURE. BONE DENSITY IS UNDESIRABLY LOW AT ONE OR MORE SKELETAL SITES, CONSISTENT WITH POSTMENOPAUSAL OSTEOPOROSIS. This patient's lowest T-score meets the World Health Organization's (WHO) criteria for osteoporosis at one or more sites (T-score -2.5 or below). In untreated patients, the risk of osteoporotic fracture increases approximately two-fold for each 1.0 SD decrease in T-score. Low bone density is not the only risk factor for fracture; also consider factors such as patient's age, frailty or poor health, risk of falling, risk of injury, previous osteoporotic fracture, family history of osteoporosis, cigarette smoking, low body weight, etc. Not everyone with low bone mineral density has osteoporosis; osteomalacia and other metabolic bone disorders should also be considered. Patients who have osteoporosis should be evaluated for specific diseases and conditions (secondary causes) that may cause or contribute to bone loss. The [place] Association of Clinical Endocrinologists (AACE) and National Osteoporosis Foundation (NOF) recommend pharmacologic intervention for all postmenopausal women whose T-score is in this range. The patient should follow a healthful lifestyle (good nutrition with adequate calcium and vitamin D, and appropriate weight-bearing exercise). Follow-Up: Consider a repeat BMD and Vertebral Fracture Assessment (VFA) exam in 2 years or sooner if medically necessary, to reassess this patient's status. Reported by: Mehrdad ASHRAF M.D. on 07/29/2022 11:52:00 AM.
== END ==
PROVIDERS: PCP Internal Medicine; Referring Provider Internal Medicine; Visit Provider Internal Medicine
DX: M81.0 Age-related osteoporosis without current pathological fracture (principal); Z78.0 Asymptomatic menopausal state
CPT/HCPCS: 77080

== ENCOUNTER → 2022-12-03 07:10 | Outpatient (CLI) | payer MEDICARE, OTHER, SELFPAY ==
[2022-12-03 09:08] LABS: Hematocrit 38.6 % (36-46); Mean Corpuscular HGB Conc 33.5 % (30-36); Mean Corpuscular Hemoglobin 31.2 PG (26-34); Mean Corpuscular Volume 92.9 fL (80-100); Platelet Count 205 X10^3/uL (150-400); Red Blood Cell Count 4.16 X10^6/uL (4.0-5.2); White Blood Cell Count 4.6 X10^3/uL (4.5-11.0)
[2022-12-03 09:48] LABS: Alanine Aminotransferase 20 IU/L (<35); Albumin 3.8 g/dL (3.5-5.0); Albumin Globulin Ratio 1.5 (1.0-2.8); Alkaline Phosphatase 58 U/L (38-126); Aspartate Aminotransferase 20 IU/L (14-36); BUN Creatinine Ratio 19.6 (6-22); Bilirubin Total 0.4 mg/dL (0.2-1.3); Blood Urea Nitrogen 11 mg/dL (7-17); Calcium 8.7 mg/dL (8.4-10.2); Carbon Dioxide 32 mmol/L (22-32); Chloride 104 mmol/L (98-107); Cholesterol 216 mg/dL (140-199); Estimated Glomerular Filt Rate > 60 mL/min (>60); Globulin 2.6 g/dL (1.7-4.1); Glucose 80 mg/dL (80-110); HDL Cholesterol 75 mg/dL (40-60); HEMOLYSIS < 15 (0-50); LDL Cholesterol Calculated 108 mg/dL (<100); Sodium 138 mmol/L (137-145); Total Protein 6.4 g/dL (6.3-8.2); Triglycerides 164 mg/dL (35-150)
[2022-12-03 10:04] LABS: Vitamin D 25 Hydroxy (D3) 21.9 ng/mL (30.0-100.0)
[2022-12-03 10:19] LABS: TSH w/ Reflex to FT4 2.18 uIU/mL (0.47-4.68)
[2022-12-06 09:17] LABS: Calcium 8.6 mg/dL (8.7-10.3); Parathyroid Hormone, Intact 52 pg/mL (15-65)
== END ==
PROVIDERS: PCP Internal Medicine; Referring Provider Internal Medicine; Visit Provider Internal Medicine
DX: E21.3 Hyperparathyroidism, unspecified (principal); E78.2 Mixed hyperlipidemia; E55.9 Vitamin D deficiency, unspecified; M81.0 Age-related osteoporosis without current pathological fracture
CPT/HCPCS: 36415; 80053; 80061; 82306; 82310; 83970; 84443; 85027

== ENCOUNTER → 2023-01-24 15:08 | Outpatient (CLI) | payer MEDICARE, OTHER, SELFPAY ==
--- NOTE | 2023-01-24 | DI.MG.S_ITS ---
BILATERAL DIGITAL SCREENING MAMMOGRAM 3D/2D WITH CAD: 01/24/2023 CLINICAL: Routine screening. Comparison is made to exams dated: 01/15/2022 mammogram, 01/01/2021 mammogram, and 12/31/2018 mammogram - [facility]. Both breasts are heterogeneously dense, which may obscure small masses (category c / 51-75% glandular tissue). Current study was also evaluated with a Computer Aided Detection (CAD) system. There is a possible developing 0.7 cm oval high density asymmetry in the right breast anterior depth superior region seen on the mediolateral oblique view only. This is more prominent. No other significant masses, calcifications, or other findings are seen in either breast. IMPRESSION: INCOMPLETE: NEEDS ADDITIONAL IMAGING EVALUATION The possible developing 0.7 cm oval high density asymmetry in the right breast resembles fibroglandular tissue and is indeterminate. Additional views with possible ultrasound are recommended. Based on the Tyrer Cuzick model (a risk assessment model) the patient's lifetime risk is 12.3% and her 10 year risk is 6.3%. According to the ACR, ACS, and NCCN guidelines, an annual breast MRI exam along with mammogram is recommended if the patient's lifetime risk is 20% or greater. This exam was interpreted at Station ID: [id number]. NOTE: For mammograms, a report in lay terms will be sent to the patient. Approximately 15% of breast malignancies will not be visualized mammographically. In the management of a palpable breast mass, a negative mammogram must not discourage biopsy of a clinically suspicious lesion. Electronically Signed By: Johnson Harvey M.D. at/:01/24/2023 16:13:44 copy to: JEF RITTER letter sent: Additional Imaging Needed ACR BI-RADS Category 0: Incomplete 3340F
== END ==
PROVIDERS: PCP Internal Medicine; Referring Provider Internal Medicine; Visit Provider Internal Medicine
DX: Z12.31 Encounter for screening mammogram for malignant neoplasm of breast (principal)
CPT/HCPCS: 77063; 77067

== ENCOUNTER → 2023-02-11 12:05 | Outpatient (CLI) | payer MEDICARE, OTHER, SELFPAY ==
--- NOTE | 2023-02-11 | DI.MG.S_ITS ---
UNILATERAL RIGHT DIGITAL DIAGNOSTIC MAMMOGRAM 3D/2D WITH ADDITIONAL VIEWS: 02/11/2023 CLINICAL: Additional evaluation requested from prior study. Comparison is made to exams dated: 01/24/2023 mammogram, 01/15/2022 mammogram, and 01/01/2021 mammogram - [facility]. The right breast is heterogeneously dense, which may obscure small masses (category c / 51-75% glandular tissue). Prior asymmetry is no longer seen in the right breast in the anterior depth in the upper aspect. This is most consistent with overlapping fibroglandular tissue. No significant masses, calcifications, or other findings are seen in the breast. IMPRESSION: INCOMPLETE: NEEDS ADDITIONAL IMAGING EVALUATION Resolution of screening mammography abnormality with additional views. Ultrasound evaluation to confirm resolution is recommended and was performed immediately following this exam. Based on the Tyrer Cuzick model (a risk assessment model) the patient's lifetime risk is 12.3% and her 10 year risk is 6.3%. According to the ACR, ACS, and NCCN guidelines, an annual breast MRI exam along with mammogram is recommended if the patient's lifetime risk is 20% or greater. This exam was interpreted at Station ID: [id number]. NOTE: For mammograms, a report in lay terms will be sent to the patient. Approximately 15% of breast malignancies will not be visualized mammographically. In the management of a palpable breast mass, a negative mammogram must not discourage biopsy of a clinically suspicious lesion. Electronically Signed By: Jenae atwood/:02/11/2023 13:00:55 copy to: JEF RITTER ACR BI-RADS Category 0: Incomplete 3340F
--- NOTE | 2023-02-11 12:07 | DI.US.S_ITS ---
LIMITED ULTRASOUND OF RIGHT BREAST: 02/11/2023 CLINICAL: Patient returns today to evaluate a focal asymmetry in the right breast. Comparison is made to exams dated: 02/11/2023 mammogram, 01/24/2023 mammogram, 01/15/2022 mammogram, 01/01/2021 mammogram, 12/31/2018 mammogram - [facility], and 07/22/2016 mammogram - [facility]. Color flow ultrasound of the right breast upper aspect was performed. Beck scale images of the real-time examination were reviewed. No significant abnormalities were seen sonographically in the right breast. Specifically, no finding to correspond to the patient's resolved screening mammographic abnormality. IMPRESSION: NEGATIVE There is no sonographic correlate to the patient's resolved screening mammography abnormality and no evidence of malignancy. Return to annual mammogram screening schedule is recommended. Findings and recommendations were conveyed to the patient at time of exam. This exam was interpreted at Station ID: [id number]. Electronically Signed By: Jenae atwood/:02/11/2023 13:14:22 copy to: JEF RITTER letter sent: Normal Exam Ultrasound BI-RADS: 1 Negative
== END ==
PROVIDERS: PCP Internal Medicine; Referring Provider Internal Medicine; Visit Provider Internal Medicine
DX: R92.8 Other abnormal and inconclusive findings on diagnostic imaging of breast (principal)
CPT/HCPCS: 76642; 77065; G0279

== ENCOUNTER 2023-07-14 20:46 | Emergency (ER) | payer MEDICARE, OTHER, SELFPAY ==
[2023-07-14 20:50] VITALS: BP 159/72; PULSE 79; RESP 18; TEMP 36.2; O2SAT 99; BMI 21.4
--- NOTE | 2023-07-14 20:55 | DI.RAD.S_ITS ---
PROCEDURE: XR CHEST 1V INDICATIONS: chest pain TECHNIQUE: One view of the chest was acquired. COMPARISON: None. FINDINGS: Surgical changes and devices: None. Lungs and pleura: Lungs are clear. No pleural effusions or pneumothorax. Mediastinum: Mediastinal contours appear normal. Heart size is normal. Bones and chest wall: No suspicious bony lesions. Overlying soft tissues appear unremarkable. IMPRESSION: No acute cardiopulmonary abnormality is seen. Dictated by: Gregory Kat M.D. on 07/14/2023 at 21:53 Approved by: Gregory Kat M.D. on 07/14/2023 at 21:53
[2023-07-14 21:09] LABS: Add Manual Diff / Slide Review NO; Basophils Absolute Auto 100 /uL (0-100); Basophils Percent Auto 0.9 % (0-2); Eosinophils Absolute Auto 200 /uL (0-450); Eosinophils Percent Auto 2.4 % (2-4); Lymphocytes Absolute Auto 2600 /uL (1100-4500); Lymphocytes Percent Auto 40.6 % (25-40); Mean Corpuscular HGB Conc 34.2 % (30-36); Mean Corpuscular Hemoglobin 31.5 PG (26-34); Monocytes Absolute Auto 500 /uL (0-900); Monocytes Percent Auto 8.1 % (3-14); Neutrophils Absolute Auto 3100 /uL (1500-7000); Platelet Count 247 X10^3/uL (150-400); Red Blood Cell Count 4.45 X10^6/uL (4.0-5.2); Red Cell Distribution Width 12.9 % (11.6-14.8); White Blood Cell Count 6.4 X10^3/uL (4.5-11.0)
[2023-07-14 21:15] LABS: INR 0.9 (0.9-1.3); Prothrombin Time 10.2 SECONDS (9.4-12.5)
[2023-07-14 21:17] LABS: PTT Partial Thromboplastin Tim 34 SECONDS (25.1-36.5)
[2023-07-14 21:18] LABS: Alanine Aminotransferase 19 IU/L (<35); Albumin 4.4 g/dL (3.5-5.0); Albumin Globulin Ratio 1.5 (1.0-2.8); Alkaline Phosphatase 58 U/L (38-126); Aspartate Aminotransferase 21 IU/L (14-36); BUN Creatinine Ratio 26.8 (6-22); Bilirubin Total 0.4 mg/dL (0.2-1.3); Blood Urea Nitrogen 15 mg/dL (7-17); Calcium 9.7 mg/dL (8.4-10.2); Carbon Dioxide 29 mmol/L (22-32); Chloride 104 mmol/L (98-107); Creatine Kinase 68 U/L (30-135); Estimated Glomerular Filt Rate > 60 mL/min (>60); Glucose 106 mg/dL (80-110); HEMOLYSIS < 15 (0-50); Lipase 100 U/L (23-300); Magnesium 2.4 mg/dL (1.6-2.3); Potassium 3.7 mmol/L (3.4-5.1); Sodium 141 mmol/L (137-145); Total Protein 7.4 g/dL (6.3-8.2)
[2023-07-14 21:30] LABS: Troponin I < 0.012 ng/mL (0.01-0.034)
[2023-07-14 22:01] VITALS: BP 119/94; PULSE 71; RESP 21; O2SAT 100
[2023-07-14 22:30] VITALS: BP 120/65; PULSE 67; RESP 16; O2SAT 100
[2023-07-14 23:00] VITALS: BP 124/65; PULSE 67; RESP 16; O2SAT 100
[2023-07-14 23:30] VITALS: BP 125/64; PULSE 68; RESP 20; O2SAT 100
--- NOTE | 2023-07-14 23:30 | ED.CHESTPAIN ---
HPI - Chest Pain General Chief Complaint: Chest Pain Stated Complaint: chest pain/close to syncope today Time Seen by Provider: 07/14/23 22:00 Source: patient Mode of arrival: Ambulatory Limitations: no limitations History of Present Illness HPI narrative: Patient is a 68-year-old female. She states she was at her normal state of health when she was sitting at a stoplight and had a sudden onset of feeling like her heart was beating fast. States that she became lightheaded at the time. [place] like she was going to pass out. Had some chest discomfort. Symptoms have now almost resolved except for some mild chest discomfort. Triage note stated that she had had similar symptoms in the past and had a workup however she reported that she has had some chest discomfort in the past but never palpitations. She does state that she was feeling anxious at the time. Related Data Home Medications Medication Instructions Recorded Confirmed naproxen sodium 220 mg tablet 220 mg PO BID PRN 03/01/20 05/07/23 (Aleve) gabapentin 300 mg capsule 300 mg PO BEDTIME PRN 09/20/22 05/07/23 Allergies Allergy/AdvReac Type Severity Reaction Status Date / Time No Known Drug Allergies Allergy Verified 07/14/23 20:50 Review of Systems Review of Systems ROS Unobtainable: All systems reviewed & are unremarkable except as noted in HPI and below Patient History Medical History Age-related osteoporosis without current pathological fracture Allergic rhinitis Mixed hyperlipidemia Generalized anxiety disorder Bursitis of left shoulder Chronic low back pain with left-sided sciatica Herniated nucleus pulposus, L5-S1, left Levoscoliosis Foraminal stenosis of lumbar region Facet arthropathy, lumbar Chicken pox Ovarian cyst (~2001) Surgical History Anesthesia History of dilatation and curettage (~1998) Family History Father Multiple myeloma Mother Congestive heart failure History of heart disease Hyperlipidemia Hypertension Sister Hypertension Grandfather Tuberculosis Grandmother History of heart disease Grandmother History of heart disease Social History marital status: details: , moved from [place], [place] in 2018 (wants to move to [place]) Smoking Status: Never smoker Smoking Status: Never smoker Exam Initial Vital Signs Initial Vital Signs: Vital Signs Temperature 97.1 F L 07/14/23 20:50 Pulse Rate 79 07/14/23 20:50 Respiratory Rate 18 07/14/23 20:50 Blood Pressure 159/72 H 07/14/23 20:50 Pulse Oximetry 99 07/14/23 20:50 Oxygen Delivery Method Room Air 07/14/23 20:50 Const General: cooperative, comfortable and No ill appearing HENMT Head: normal to inspection and normocephalic Resp Effort & Inspection: normal respiratory effort Auscultation: clear to auscultation bilaterally Cardio Rate: regular rate Rhythm: regular rhythm GI Inspection: normal to inspection and non-distended Skin General: no rashes or lesions noted Neuro General: patient alert, patient awake and moves all extremities Extrem General: capillary refill normal Scores HEART Score Heart Score history: Slightly Suspicious Heart Score EKG: Normal Heart Score Age: > or = 65 years old Heart Score risk factors: 1-2 risk factors Heart Score troponin: < or = to normal limit Heart Score Total: 3 Course Orders Ordered: ED Orders 07/14/23 20:55 XR chest 1V Stat EKG-12 Lead Stat 07/14/23 21:00 Complete Blood Count AUTO DIFF Stat Comprehensive Metabolic Panel Stat Lipase Stat Magnesium Stat PTT Partial Thromboplastin Arnoldo Stat Prothrombin Time INR Stat Troponin & CK Cardiac Panel Stat 07/14/23 23:35 Troponin & CK Cardiac Panel Stat Discontinued Medications Aspirin (Aspirin 81 Mg Chew Tab) 324 mg PO NOW ONE Stop: 07/14/23 20:56 Vital Signs Vital signs: Vital Signs - 8 hr 07/14/23 20:50 07/14/23 22:01 07/14/23 22:01 Temperature 97.1 F L Pulse Rate 79 71 Respiratory Rate 18 21 Blood Pressure 159/72 H 119/94 H Pulse Oximetry 99 100 Oxygen Delivery Method Room Air 07/14/23 22:30 07/14/23 22:30 07/14/23 23:00 Temperature Pulse Rate 67 67 Respiratory Rate 16 16 Blood Pressure 120/65 Pulse Oximetry 100 100 Oxygen Delivery Method Room Air 07/14/23 23:00 07/14/23 23:30 07/14/23 23:30 Temperature Pulse Rate 68 Respiratory Rate 20 Blood Pressure 124/65 125/64 Pulse Oximetry 100 Oxygen Delivery Method Room Air 07/15/23 00:00 07/15/23 00:00 07/15/23 00:30 Temperature Pulse Rate 75 Respiratory Rate 18 Blood Pressure 119/70 122/64 Pulse Oximetry 100 Oxygen Delivery Method Room Air 07/15/23 00:30 07/15/23 00:45 Temperature 97.7 F Pulse Rate 69 Respiratory Rate 17 Blood Pressure Pulse Oximetry 100 Oxygen Delivery Method Room Air MDM - Chest Pain Lab Data Attestation: I reviewed the patient's lab results. 07/14/23 21:00 07/14/23 21:00 Labs: Lab Results 07/14/23 07/14/23 Range/Units 21:00 23:35 WBC 6.4 (4.5-11.0) X10^3/uL RBC 4.45 (4.0-5.2) X10^6/uL Hgb 14.0 (12.0-16.0) g/dL Hct 41.0 (36-46) % MCV 92.0 (80-100) fL MCH 31.5 (26-34) PG MCHC 34.2 (30-36) % RDW 12.9 (11.6-14.8) % Plt Count 247 (150-400) X10^3/uL Neut % (Auto) 48.0 L (50-75) % Lymph % (Auto) 40.6 H (25-40) % Bell % (Auto) 8.1 (3-14) % Eos % (Auto) 2.4 (2-4) % Baso % (Auto) 0.9 (0-2) % Neut # (Auto) 3100 (0823-5955) /uL Lymph # (Auto) 2600 (0876-9400) /uL Bell # (Auto) 500 (0-900) /uL Eos # (Auto) 200 (0-450) /uL Baso # (Auto) 100 (0-100) /uL PT 10.2 (9.4-12.5) SECONDS INR 0.9 (0.9-1.3) APTT 34 (25.1-36.5) SECONDS Sodium 141 (137-145) mmol/L Potassium 3.7 (3.4-5.1) mmol/L Chloride 104 (98-107) mmol/L Carbon Dioxide 29 (22-32) mmol/L BUN 15 (7-17) mg/dL Creatinine 0.56 (0.52-1.04) mg/dL Estimated GFR > 60 (>60) mL/min BUN/Creatinine Ratio 26.8 H (6-22) Glucose 106 (80-110) mg/dL Calcium 9.7 (8.4-10.2) mg/dL Magnesium 2.4 H (1.6-2.3) mg/dL Total Bilirubin 0.4 (0.2-1.3) mg/dL AST 21 (14-36) IU/L ALT 19 (<35) IU/L Alkaline Phosphatase 58 (38-126) U/L Total Creatine Kinase 68 57 (30-135) U/L Troponin I < 0.012 < 0.012 (0.01-0.034) ng/mL Total Protein 7.4 (6.3-8.2) g/dL Albumin 4.4 (3.5-5.0) g/dL Globulin 3.0 (1.7-4.1) g/dL Albumin/Globulin Ratio 1.5 (1.0-2.8) Lipase 100 (23-300) U/L Imaging Data Chest x-ray: Radiologist's Impression: PROCEDURE: XR CHEST 1V INDICATIONS: chest pain TECHNIQUE: One view of the chest was acquired. COMPARISON: None. FINDINGS: Surgical changes and devices: None. Lungs and pleura: Lungs are clear. No pleural effusions or pneumothorax. Mediastinum: Mediastinal contours appear normal. Heart size is normal. Bones and chest wall: No suspicious bony lesions. Overlying soft tissues appear unremarkable. IMPRESSION: No acute cardiopulmonary abnormality is seen. ECG Data Attestation: I personally reviewed and interpreted this ECG as follows: Interpretation: Sinus rhythm Ventricular rate is 70 Normal axis Normal QRS Normal QTC No ST T wave changes MDM Narrative Medical decision making narrative: Low risk heart score. Troponin is negative x2. Rest of her labs unremarkable. EKG is unremarkable. Discussed with her the lack of a definitive diagnosis and the inability to give her an exact cause of her palpitations since she was not being monitored at the time of the event. Advised that she talk with her primary doctor about a Holter monitor. Will discharge home with return precautions. She expressed understanding and agreement. Discharge Plan Departure Patient Disposition: Home Clinical Impression: Atypical chest pain, Palpitations Instructions: DI for Atypical Chest Pain Activity Restrictions/Additional Instructions: I do recommend that you contact your primary care doctor's office for a follow-up to discuss the indications for a Holter monitor. Return to the emergency department for new or worsening symptoms. Prescriptions: No Action gabapentin 300 mg capsule 300 mg PO BEDTIME PRN naproxen sodium [Aleve] 220 mg tablet 220 mg PO BID PRN Referrals: Francis Villafuerte MD [Primary Care Provider] - Stand Alone Forms: Patient Portal/API
[2023-07-14 23:57] LABS: Creatine Kinase 57 U/L (30-135)
[2023-07-15] VITALS: BP 119/70; PULSE 75; RESP 18; O2SAT 100
[2023-07-15 00:11] LABS: Troponin I < 0.012 ng/mL (0.01-0.034)
[2023-07-15 00:30] VITALS: BP 122/64; PULSE 69; RESP 17; O2SAT 100
[2023-07-15 00:45] VITALS: TEMP 36.5
== END 2023-07-15 00:45 | disposition home or self-care (01) ==
PROVIDERS: Emergency Provider Emergency Medicine; PCP Internal Medicine
DX: R07.89 Other chest pain (principal); R00.2 Palpitations
CPT/HCPCS: 36415; 71045; 80053; 82550; 83690; 83735; 84484; 85025; 85610; 85730; 93005; 99283; 99284

== ENCOUNTER → 2024-01-13 08:52 | Outpatient (CLI) | payer MEDICARE, OTHER, SELFPAY ==
[2024-01-13 11:24] LABS: Alanine Aminotransferase 16 IU/L (<35); Albumin 4.1 g/dL (3.5-5.0); Albumin Globulin Ratio 1.7 (1.0-2.8); Alkaline Phosphatase 40 U/L (38-126); Aspartate Aminotransferase 21 IU/L (14-36); BUN Creatinine Ratio 22.5 (6-22); Bilirubin Total 0.7 mg/dL (0.2-1.3); Blood Urea Nitrogen 16 mg/dL (7-17); Calcium 9.3 mg/dL (8.4-10.2); Carbon Dioxide 28 mmol/L (22-32); Chloride 103 mmol/L (98-107); Cholesterol 224 mg/dL (140-199); Estimated Glomerular Filt Rate > 60 mL/min (>60); Globulin 2.4 g/dL (1.7-4.1); Glucose 85 mg/dL (80-110); HDL Cholesterol 83 mg/dL (40-60); HEMOLYSIS < 15 (0-50); LDL Cholesterol Calculated 123 mg/dL (<100); Potassium 4.2 mmol/L (3.4-5.1); Sodium 138 mmol/L (137-145); Total Protein 6.5 g/dL (6.3-8.2); Triglycerides 92 mg/dL (35-150)
== END ==
PROVIDERS: PCP Internal Medicine; Referring Provider Internal Medicine; Visit Provider Internal Medicine
DX: E78.2 Mixed hyperlipidemia (principal); M81.0 Age-related osteoporosis without current pathological fracture
CPT/HCPCS: 36415; 80053; 80061

== ENCOUNTER → 2024-02-23 09:15 | Outpatient (CLI) | payer MEDICARE, OTHER, SELFPAY ==
--- NOTE | 2024-02-23 09:16 | DI.MG.S_ITS ---
BILATERAL DIGITAL SCREENING MAMMOGRAM 3D/2D WITH CAD: 02/23/2024 CLINICAL: Routine screening. Comparison is made to exams dated: 01/15/2022 mammogram, 01/24/2023 mammogram, and 01/01/2021 mammogram - [facility]. The breasts are heterogeneously dense, which may obscure small masses (category c / 51-75% glandular tissue). Current study was also evaluated with a Computer Aided Detection (CAD) system. No significant masses, calcifications, or other findings are seen in either breast. There has been no significant interval change. IMPRESSION: NEGATIVE There is no mammographic evidence of malignancy. A 1 year screening mammogram is recommended. Based on the Tyrer Cuzick model (a risk assessment model) the patient's lifetime risk is 11.7% and her 10 year risk is 6.2%. According to the ACR, ACS, and NCCN guidelines, an annual breast MRI exam along with mammogram is recommended if the patient's lifetime risk is 20% or greater. This exam was interpreted at Station ID: [id number]. NOTE: For mammograms, a report in lay terms will be sent to the patient. Approximately 15% of breast malignancies will not be visualized mammographically. In the management of a palpable breast mass, a negative mammogram must not discourage biopsy of a clinically suspicious lesion. Electronically Signed By: Johnson gillis/aleah:02/23/2024 18:34:01 copy to: JEF RITTER letter sent: Normal Exam ACR BI-RADS Category 1: Negative
== END ==
PROVIDERS: PCP Internal Medicine; Referring Provider Internal Medicine; Visit Provider Internal Medicine
DX: Z12.31 Encounter for screening mammogram for malignant neoplasm of breast (principal); R92.333 Mammographic heterogeneous density, bilateral breasts
CPT/HCPCS: 77063; 77067

== ENCOUNTER → 2024-08-09 09:48 | Outpatient (CLI) | payer MEDICARE, OTHER, SELFPAY ==
--- NOTE | 2024-08-09 09:50 | DI.RAD.S_ITS ---
PROCEDURE: XR DEXA AXIAL SKELETON INDICATIONS: osteoperosis, 2-yr follow up COMPARISON: Merged With [facility], , XR DEXA AXIAL SKELETON, 07/29/2022, 11:45. FINDINGS: Lumbar Spine: Bone mineral density 0.967 (previously 0.964) g/cm2, T score -0.8 (previously-0.8). Left Femoral Neck: Bone mineral density 0.586 (previously 0.569) g/cm2, T score -2.4 (previously-2.5). Left Hip: Bone mineral density 0.817 (previously 0.780) g/cm2, T score -1.0 (previously-1.3). Fracture Risk Calculation (when applicable): 10-year fracture risk of a major osteoporotic fracture 12 percent and of a hip fracture 2.7 percent. (T score greater or equal to -1.0 to: NORMAL) (T score from -1.1 to -2.4: OSTEOPENIA) (T score less than or equal to -2.5: OSTEOPOROSIS) IMPRESSION: Osteopenia---recommend repeat DEXA in 2-3 years for reassessment. Follow-up guidelines as follows: Osteoporosis: Consider a repeat DEXA and Vertebral Fracture Assessment (VFA) exam in 2 years or sooner if medically necessary, to reassess this patient's status. Osteopenia: Consider a repeat DEXA in 2-3 years to reassess this patient's status, or if there is a new clinical indication. Normal: Consider a repeat DEXA in 5 years or sooner, or if there is a new clinical indication. All treatment decisions require clinical judgment and consideration of individual patient factors, including patient preferences, comorbidities, previous drug use, risk factors not captured in the FRAX model (e.g., frailty, falls, vitamin D deficiency, increased bone turnover, interval significant decline in bone density ) and possible under- or over-estimation of fracture risk by FRAX. In addition, the NOF Guide recommends that FDA-approved medical therapies be considered in postmenopausal women and men age >= 50 years with a: * Hip or vertebral (clinical or morphometric) fracture * T-score of <=-2.5 at the spine or hip * Ten-year fracture probability by FRAX of >= 3% for hip fracture or >=20% for major osteoporotic fracture. Dictated by: Cholo Sellers M.D. on 08/10/2024 at 3:30 Approved by: Cholo Sellers M.D. on 08/10/2024 at 3:32
== END ==
PROVIDERS: PCP Internal Medicine; Referring Provider Internal Medicine; Visit Provider Internal Medicine
DX: M81.0 Age-related osteoporosis without current pathological fracture (principal)
CPT/HCPCS: 77080

== ENCOUNTER → 2025-02-04 07:08 | Outpatient (CLI) | payer MEDICARE, OTHER, SELFPAY ==
[2025-02-04 08:31] LABS: Alanine Aminotransferase 18 IU/L (<35); Albumin 4.3 g/dL (3.5-5.0); Albumin Globulin Ratio 1.7 (1.0-2.8); Alkaline Phosphatase 43 U/L (38-126); Blood Urea Nitrogen 12 mg/dL (7-17); Calcium 8.9 mg/dL (8.4-10.2); Carbon Dioxide 28 mmol/L (22-32); Chloride 102 mmol/L (98-107); Cholesterol 234 mg/dL (140-199); Estimated Glomerular Filt Rate > 60 mL/min (>60); Globulin 2.5 g/dL (1.7-4.1); Glucose 84 mg/dL (70-99); HDL Cholesterol 81 mg/dL (40-60); HEMOLYSIS < 15 (0-50); Potassium 4.2 mmol/L (3.4-5.1); Sodium 136 mmol/L (137-145); Total Protein 6.8 g/dL (6.3-8.2); Triglycerides 104 mg/dL (35-150)
== END ==
PROVIDERS: PCP Internal Medicine; Referring Provider Internal Medicine; Visit Provider Internal Medicine
DX: E78.2 Mixed hyperlipidemia (principal); M85.80 Other specified disorders of bone density and structure, unspecified site
CPT/HCPCS: 36415; 80053; 80061

== ENCOUNTER → 2025-03-03 09:22 | Outpatient (CLI) | payer MEDICARE, OTHER, SELFPAY ==
--- NOTE | 2025-03-03 09:23 | DI.MG.S_ITS ---
MM screening mammo BI: 03/03/2025. BI-RADS: 1 CLINICAL: 69-year old female for bilateral screening mammogram. Tyrer-Cuzick lifetime risk of 5.6%. No personal or first-degree family history of breast cancer. PRIOR EXAMS 02/23/2024, 01/24/2023, 01/15/2022, 01/01/2021. MAMMOGRAPHY TECHNIQUE: 2D and 3D (tomosynthesis) digital mammographic views obtained, with additional images as needed for full coverage. Current study was also evaluated with a Computer Aided Detection (CAD) system. DENSITY C. The breasts are heterogeneously dense, which may obscure small masses. MAMMOGRAPHY FINDINGS Bilateral: No suspicious mass, asymmetry, microcalcification, or other abnormality seen. IMPRESSION: * No evidence of malignancy. RECOMMENDATIONS Bilateral * Annual screening mammography. OVERALL ASSESSMENT CATEGORY BI-RADS-1: Negative. The [employer] recommends annual screening mammography beginning at age 40 for women with average risk of breast cancer. ELECTRONICALLY SIGNED: Garima Vann M.D. on 03/03/2025 at 04:45:30 PM PT Interpreting Station ID: [id number]
== END ==
LOC: MAMMO 09:22
PROVIDERS: PCP Internal Medicine; Referring Provider Internal Medicine; Visit Provider Internal Medicine
DX: Z12.31 Encounter for screening mammogram for malignant neoplasm of breast (principal); R92.333 Mammographic heterogeneous density, bilateral breasts
CPT/HCPCS: 77063; 77067